=== PATIENT | male | born 1965 | race Caucasian/White ===

== ENCOUNTER → 2016-10-28 | Outpatient (CLI) | payer OTHER ==
[~2016-10-28] MED LIST: ASPI325T45 PO; ATORVASTATIN PO; CYCL10TA6 PO; GLYB-108 PO; HYDR1TAB2 PO; LISI-461 PO; METF1TAB53 PO; TADA10TA PO
[2016-10-28 10:33] LABS: ALT/SGPT 35 U/L (12-78); AST/SGOT 16 U/L (15-37); BLOOD UREA NITROGEN 13 mg/dl (7-18); BUN/CREATININE RATIO 14.7 (10-20); CARBON DIOXIDE 29 mmol/L (21-32); CHLORIDE 104 mmol/L (98-107); GLUCOSE 139 mg/dl (70-99); POTASSIUM 4.8 mmol/L (3.5-5.1); SODIUM 136 mmol/L (136-145)
[2016-10-28 10:55] LABS: ESTIMATED AVERAGE GLUCOSE 206 mg/dl; HA1C FLAG Normal (Normal)
== END | disposition home or self-care (01) ==
LOC: C.LAB 09:21
DX: E11.9 Type 2 diabetes mellitus without complications (principal); E78.5 Hyperlipidemia, unspecified

== ENCOUNTER → 2017-04-02 | Outpatient (CLI) | payer OTHER ==
[~2017-04-02] MED LIST changes: +ASPECOTC PO; -ASPI325T45 PO
[2017-04-02 13:08] LABS: BASO % 0.2 %; BASO ABS # 0.02 K/uL (0-0.2); EOS % 1.2 %; EOS ABS # 0.11 K/uL (0-0.5); HEMATOCRIT 51.3 % (42-52); HEMOGLOBIN 17.5 g/dL (14.0-18.0); IG# 0.03 K/uL (0.00-0.02); LYMPH % 21.4 %; LYMPH ABS # 1.96 K/uL (1.2-3.4); MEAN CELL VOLUME 94.8 fL (80-100); MEAN CORPUSCULAR HEMOGLOBIN 32.3 pg (25-34); MEAN CORPUSCULAR HGB CONC 34.1 g/dl (32-36); MEAN PLATELET VOLUME 11.3 fL (7.4-10.4); MONO % 10.4 %; MONO ABS # 0.95 K/uL (0.11-0.59); NEUT % 66.5 %; NEUT ABS # 6.08 K/uL (1.4-6.5); PLATELET COUNT 212 K/uL (130-400); RED CELL DISTRIBUTION WIDTH CV 12.3 % (11.5-14.5); RED CELL DISTRIBUTION WIDTH SD 42.4 fL (36.4-46.3); WHITE BLOOD COUNT 9.15 K/uL (4.8-10.8)
[2017-04-02 13:37] LABS: BLOOD UREA NITROGEN 14 mg/dl (7-18); CALCIUM 8.8 mg/dl (8.5-10.1); CARBON DIOXIDE 29 mmol/L (21-32); CREATININE 1.13 mg/dl (0.60-1.40); GLUCOSE 257 mg/dl (70-99); POTASSIUM 4.5 mmol/L (3.5-5.1); SODIUM 133 mmol/L (136-145)
[2017-04-03 07:36] LABS: HEMOGLOBIN A1C 7.5 % (4.5-5.6)
== END | disposition home or self-care (01) ==
LOC: C.LAB 12:03
DX: E11.9 Type 2 diabetes mellitus without complications (principal); I10 Essential (primary) hypertension

== ENCOUNTER → 2017-04-09 | Outpatient (CLI) | payer OTHER ==
--- NOTE | 2017-04-09 14:21 | DIAGNOSTIC IMAGING REPORT ---
CHEST 2 VIEWS ROUTINE CLINICAL HISTORY: Left-sided chest pain. Shortness of breath. COMPARISON STUDY: February 2009 FINDINGS: The cardiac and mediastinal contours are normal. There is no evidence of focal pulmonary consolidation. There is no evidence of failure. No pleural effusions are visualized.[ IMPRESSION: No active disease in the chest. Electronically signed by: Christophe Tsai M.D. 04/09/2017 2:20 PM Dictated Date/Time: 04/09/2017 2:19 PM
[2017-04-09 16:41] LABS: BLOOD UREA NITROGEN 20 mg/dl (7-18); CALCIUM 9.2 mg/dl (8.5-10.1); CARBON DIOXIDE 29 mmol/L (21-32); CREATININE 1.29 mg/dl (0.60-1.40); GLUCOSE 249 mg/dl (70-99); POTASSIUM 4.1 mmol/L (3.5-5.1); SODIUM 132 mmol/L (136-145)
[2017-04-09 16:46] LABS: CKMB 1.6 ng/ml (0.5-3.6)
== END | disposition home or self-care (01) ==
LOC: C.CPL 13:49
DX: R07.9 Chest pain, unspecified (principal); R06.00 Dyspnea, unspecified; R00.1 Bradycardia, unspecified

== ENCOUNTER → 2017-04-29 | Outpatient (CLI) | payer OTHER ==
[~2017-04-29] MED LIST changes: -ASPECOTC PO; +ASPI325T45 PO
[2017-04-29 12:34] LABS: AST/SGOT 14 U/L (15-37); BLOOD UREA NITROGEN 17 mg/dl (7-18); CALCIUM 9.6 mg/dl (8.5-10.1); CARBON DIOXIDE 29 mmol/L (21-32); CHOLESTEROL 134 mg/dl (0-200); CREATININE 1.07 mg/dl (0.60-1.40); GLUCOSE 241 mg/dl (70-99); POTASSIUM 4.5 mmol/L (3.5-5.1); SODIUM 131 mmol/L (136-145)
[2017-04-29 12:45] LABS: ALT/SGPT 38 U/L (12-78); LDL CHOLESTEROL CALCULATED 78 mg/dl
[2017-04-29 13:00] LABS: HEMOGLOBIN A1C 8.5 % (4.5-5.6)
== END | disposition home or self-care (01) ==
LOC: C.LAB 09:54
DX: I10 Essential (primary) hypertension (principal); E11.9 Type 2 diabetes mellitus without complications

== ENCOUNTER → 2017-05-04 | Outpatient (CLI) | payer OTHER ==
--- NOTE | 2017-05-04 15:45 | EXERCISE STRESS ECHO ---
*NOTICE TO RECEIVING [employer]ENCY This information is strictly Confidential and protected under [place] law. [place] law prohibits you from making any further disclosure of this information unless further disclosure is expressly permitted by the written consent of the person to whom it pertains or is authorized by law. A general authorization for the release of medical or other information is not sufficient for this purpose. Hospital accepts no responsibility if the information is made available to any other person, INCLUDING THE PATIENT. Interpretation Summary * Name: JOVAN NORMAN JR Study Date: 05/04/2017 10:00 AM BP: 132/87 mmHg * Patient Location: [facility] HR: 95 * : 1965 (M/d/yyyy) Gender: Male Height: 72 in * Age: 51 yrs Ethnicity: [place] Weight: 225 lb * Ordering Physician: Stanford Moore * Referring Physician: Stanford Moore D.O. * Performed By: Nova Villalpando RDCS * * Reason For Study: Chest pain, hypertension, family history of CAD * BSA: 2.2 m2 * -- Conclusions -- * 1. Negative exercise stress echo for ischemia at 97% MPHR. * 2. Negative stress ECG for ischemia. * 3. Above average functional capacity. Exercised 11:00 min, acheiving 13.4 METS. * 4. No exercise induced chest pain. Normal hemodynamic response to exercise. * 5. Normal resting LV size and function. EF 55-60%. Normal RV size and function. No significant valvular pathology. * 6. No prior studies for comparison. Procedure Details * ECHOEX, CPT #85004 * ECHO DOPPLER, CPT #34711 * ECHO COLOR FLOW, CPT #94730 Left Ventricle * The left ventricle is normal in size. * There is normal left ventricular wall thickness. * Ejection Fraction = 55-60%. * The left ventricular ejection fraction increases normally with stress. The left ventricular end-systolic cavity size reduces post-stress (normal response). The left ventricular wall motion with stress is normal. * Resting wall motion: Normal. Stress wall motion: Appropriate increase in Left ventricular systolic function and decrease in cavity size. No stress induced segmental wall motion abnormalities. Right Ventricle * The right ventricle is grossly normal size. * The right ventricular systolic function is normal as assessed by tricuspid annular plane systolic excursion (TAPSE) (normal >1.5 cm). Atria * The left atrial size is normal. * Right atrial size is normal. * No ASD detected; PFO is not assessed. Mitral Valve * The mitral valve is grossly normal. * There is no mitral valve stenosis. * There is trace mitral regurgitation. Tricuspid Valve * The tricuspid valve is not well visualized, but is grossly normal. * Significant tricuspid regurgitation is absent. Aortic Valve * The aortic valve opens well. * The aortic valve is trileaflet. * No hemodynamically significant valvular aortic stenosis. * There is no significant aortic regurgitation. Pulmonic Valve * The pulmonary valve is inadequately visualized, but the Doppler data is adequate for interpretation. * There is no pulmonic valvular regurgitation. Great Vessels * The aortic root and proximal ascending aorta are normal sized. Pericardium * There is no pericardial effusion. Stress Parameters * Normal baseline electrocardiogram. * Occasional PVCs and couplets during stress. * Stress ECG: No ST changes. No arrhythmias. * The stress portion of this study was personally supervised by the undersigned interpreting physician. * Rest heart rate was '95' BPM. * Rest blood pressure was '132/87' * Maximum heart rate achieved was 164 bpm. * Maximum heart rate was 97 % of maximum age-predicted heart rate. * Maximum blood pressure was '199/96' * Total exercise time was '11:01' * Maximum exercise MET level achieved was '13.40' METS * Maximum treadmill speed was '4.20' miles per hour. * Maximum treadmill elevation was '16.00'% grade. * Exercise was terminated due to 'achieving target heart rate' Left Ventricular Findings with Stress * The study was technically good with many images being of high quality. MMode 2D Measurements and Calculations IVSd 0.68 cm LVIDd 6.1 cm LVIDs 4.5 cm LVPWd 0.89 cm IVS/LVPW 0.76 FS 26.6 % EDV(Teich) 187.3 ml ESV(Teich) 91.6 ml EF(Teich) 51.1 % EDV(cubed) 227.6 ml ESV(cubed) 90.1 ml EF(cubed) 60.4 % LV mass(C)d 187.2 grams LV mass(C)dI 83.6 grams/m\S\2 SV(Teich) 95.7 ml SI(Teich) 42.7 ml/m\S\2 SV(cubed) 137.5 ml SI(cubed) 61.4 ml/m\S\2 Ao root diam 2.9 cm Ao root area 6.7 cm\S\2 ACS 1.8 cm LA dimension 3.6 cm asc Aorta Diam 3.4 cm LA/Ao 1.2 LVOT diam 2.0 cm LVOT area 3.3 cm\S\2 LVAd ap4 32.6 cm\S\2 LVLd ap4 8.8 cm EDV(MOD-sp4) 98.2 ml EDV(sp4-el) 102.2 ml LVAs ap4 18.7 cm\S\2 LVLs ap4 8.0 cm ESV(MOD-sp4) 37.7 ml ESV(sp4-el) 36.8 ml EF(MOD-sp4) 61.6 % EF(sp4-el) 64.0 % LVAd ap2 32.5 cm\S\2 LVLd ap2 9.0 cm EDV(MOD-sp2) 96.5 ml EDV(sp2-el) 100.4 ml LVAs ap2 19.4 cm\S\2 LVLs ap2 8.2 cm ESV(MOD-sp2) 40.3 ml ESV(sp2-el) 39.1 ml EF(MOD-sp2) 58.3 % EF(sp2-el) 61.1 % LVLd %diff 1.6 % EDV(MOD-bp) 97.4 ml LVLs %diff 1.9 % ESV(MOD-bp) 38.7 ml EF(MOD-bp) 60.3 % SV(MOD-sp4) 60.5 ml SI(MOD-sp4) 27.0 ml/m\S\2 SV(MOD-sp2) 56.2 ml SI(MOD-sp2) 25.1 ml/m\S\2 SV(MOD-bp) 58.7 ml SI(MOD-bp) 26.2 ml/m\S\2 SV(sp4-el) 65.4 ml SI(sp4-el) 29.2 ml/m\S\2 SV(sp2-el) 61.4 ml SI(sp2-el) 27.4 ml/m\S\2 Doppler Measurements and Calculations MV E max juanis 64.0 cm/sec MV A max juanis 89.7 cm/sec MV E/A 0.71 MV dec time 0.17 sec Ao V2 max 129.7 cm/sec Ao max PG 6.7 mmHg Ao max PG (full) 4.7 mmHg JOSE CARLOS(V,A) 1.8 cm\S\2 JOSE CARLOS(V,D) 1.8 cm\S\2 LV V1 max PG 2.0 mmHg LV V1 max 71.3 cm/sec PA V2 max 97.7 cm/sec PA max PG 3.8 mmHg PA acc slope 575.6 cm/sec\S\2 PA acc time 0.10 sec PA pr(Accel) 34.6 mmHg
== END | disposition home or self-care (01) ==
LOC: C.CPL 09:48
DX: R07.1 Chest pain on breathing (principal); R06.09 Other forms of dyspnea; I10 Essential (primary) hypertension; Z82.49 Family history of ischemic heart disease and other diseases of the circulatory system

== ENCOUNTER → 2017-05-13 | Outpatient (CLI) | payer OTHER ==
--- NOTE | 2017-05-13 10:47 | DIAGNOSTIC IMAGING REPORT ---
(RENAL)RETROPERITON COMP HISTORY: HYPERTENSION COMPARISON: None. FINDINGS: Right kidney: Maximum dimension 11.1 cm. No evidence for hydronephrosis. Normal corticomedullary differentiation and cortical thickness. Left kidney: Maximum dimension 13.5 cm. No evidence for hydronephrosis. Small 7 mm lower pole exophytic cyst. Normal corticomedullary differentiation and cortical thickness. Bladder: No bladder wall thickening. The bilateral ureteral jets were identified. IMPRESSION: Small left renal cyst. Otherwise negative study. No evidence for hydronephrosis. The above report was generated using voice recognition software. It may contain grammatical, syntax or spelling errors. Electronically signed by: Matry Hoover M.D. 05/13/2017 10:46 AM Dictated Date/Time: 05/13/2017 10:45 AM
--- NOTE | 2017-05-13 10:51 | DIAGNOSTIC IMAGING REPORT ---
DUPLEX RENAL ARTERY CLINICAL HISTORY: HYPERTENSION TECHNIQUE: Renal arterial Doppler COMPARISON STUDY: None FINDINGS: Mild increase in velocity proximal aspect left renal artery. All velocities otherwise are unremarkable bilaterally. Resistive indices are within normal limits. IMPRESSION: 30-40% narrowing proximal left renal artery. Otherwise negative study with no evidence for a high-grade stenosis. The above report was generated using voice recognition software. It may contain grammatical, syntax or spelling errors. Electronically signed by: Marty Hoover M.D. 05/13/2017 10:50 AM Dictated Date/Time: 05/13/2017 10:46 AM
== END | disposition home or self-care (01) ==
LOC: C.ULTR 08:21
DX: I10 Essential (primary) hypertension (principal); N28.1 Cyst of kidney, acquired

== ENCOUNTER 2023-08-31 18:50 | Inpatient (IN) ==
--- NOTE | 2023-08-31 21:51 | History & Physical Report ---
Date of Service August 31, 2023 Assessment & Plan (1) Septic bursitis of elbow: (2) Gram-positive bacteremia: (3) Insulin dependent type 2 diabetes mellitus: (4) Panic attacks: (5) Dyslipidemia: (6) HTN (hypertension): (7) Elevated troponin: Debora Govea is a 58M with PMH of panic attacks, T2DM on insulin, polyneuropathy, HLD, and HTN who presents as transfer from [facility] for S. Aureus bacteremia and sepsis associated with an infected bursitis. Septic Olecranon Bursitis - Patient w/ acute onset (08/23)of erythema, warmth, and swelling at the site of the left olecranon bursa - Leukocytosis to 15 at OSH - Bursal samples obtained at OSH 08/28 indicating S. Aureus - Patient was on PO Bactrim starting 08/28, but was switched to Vancomycin at OSH 08/30 prior to transfer - Continue Vancomycin at 2000 mg IV Q12h inpatient (creatinine stable at 1.2 at OSH) - XR L Elbow obtained to evaluate for cx such as fx, foreign body, osteomyelitis, adjacent joint effusion, foci of air or synovial thickening - Orthopedics consulted, appreciate recommendations - Bursal drainage recommended if fluid collection persists despite 36-48 hours of IV Abx, continue to follow - AM CBC/CMP ordered S. Aureus Bacteremia - L olecranon septic bursitis suspected source - Blood cultures obtained at OSH 08/28 indicating S. Aureus bacteremia - Hemodynamically stable - Lactate negative at OSH (1.5) - Repeat blood cultures for surveillance - Ordered TTE to evaluate for endocarditis - Continue source control w/ Vancomycin at 2000 mg IV Q12h inpatient, bursitis management as above Troponin Elevation - Troponin 86 on arrival 1700, downtrending to 76 at 1900 - No chest pain or dyspnea, monitor for sx - Likely demand in setting of infection Chronic Conditions: - HTN: continue Amlodipine - HLD: continue statin - Panic Attacks: continue Ativan PRN - DM2: Continue basal insulin, home PO medications held, SSI ordered, 08/15 A1c 8.2 FEN: DM2, Heart Healthy IVF: LR @ 125 Code status: Full Code DVT ppx: Ambulation/SCD Isolation: None Dispo:Med/Surg Admission and Anticipated Discharge Date Admission Date: August 31, 2023 History of Present Illness Chief Complaint: Septic Olecranon Bursitis w/ Gram Positive Bacteremia Primary Care Provider: Mery Maxwell MD Jeferson is a 58M with PMH of panic attacks, T2DM on insulin, polyneuropathy, HLD, and HTN who presents as transfer from [facility] for S. Aureus bacteremia and sepsis associated with an infected bursitis. Patient notes that alittle over a week ago, he was welding at work and some slag hit his left elbow resulting in a burn to the area. He notes that he cleaned it well and put aloe on the area, but that shortly thereafter it started to swell. He presented for evaluation on Wednesday and the area of edema over the left elbow joint was aspirated and a sample was sent for culture. In addition, blood cultures were obtained. Patient was discharged on PO Bactrim DS BID and Prednisone 40 mg PO daily. He notes that he was in [place] this morning and was called and notified that his wound and blood cultures were growing S. Aureus. He subsequently presented to [facility] and was transferred to [facility] for ongoing care. Patient notes that the swelling on his elbow had diminished following aspiration, but over the last few days it has only returned and increased in size. He denies pain at the site and has no limitations to ROM of the left arm/elbow. He denies fevers or chills, but does note that he has been increasingly fatigued and weak, which has progressed over the week, to the point where climbing a few steps has become challenging. Denies headache or lightheadedness. No chest pain or dyspnea. No bowel/bladder changes. He continues to eat and drink without limitation. Patient was transferred from [facility] ED where he was started on Vancomycin and received first dose via IV at 1645 for Septic Bursitis. Transfer was initiated to [facility] as [facility] did not have access to Orthopaedics consultation this week. Patient's PCP is Dr. Maxwell from [facility]. OSH records reviewed at length. Allergies Allergy/AdvReac Type Severity Reaction Status Date / Time No Known Allergies Allergy Unknown Verified 09/01/23 17:58 Home Medications Medication Instructions Recorded Confirmed Type coenzyme Q10 100 mg capsule 100 mg PO DAILY 05/12/18 09/01/23 History (CoQ-10) multivitamin 1 tab PO DAILY 02/07/19 05/29/24 History metformin 500 mg tablet,extended 1,000 mg (2 x 500 mg) PO QPM 30 05/26/22 09/01/23 Rx release 24hr (osmotic) days #60 tabs meteen meter 06/22/22 08/23/23 History insulin syringe-needle U-100 1 mL #20 ea 10/29/22 08/23/23 Rx 29 gauge x 1/2" (BD Insulin Syringe) testosterone cypionate 200 mg/mL 200 mg IM Q14D #2 mL 10/29/22 09/01/23 Rx intramuscular oil (Depo-Testosterone) insulin syringe-needle U-100 1 mL #2 ea 10/30/22 08/23/23 Rx 29 gauge x 1/2" (Advocate Syringes) magnesium 200 mg tablet 400 mg PO DAILY 12/04/22 09/01/23 History atorvastatin 80 mg tablet 80 mg PO DAILY #30 tabs 01/25/23 09/01/23 Rx cholecalciferol (vitamin D3) 1,250 50,000 unit PO Q7D #12 caps 01/25/23 09/01/23 Rx mcg (50,000 unit) capsule Dexcom G7 Customer Service Cashier (blood-glucose #1 ea 02/19/23 08/23/23 Rx meter,continuous) Dexcom G7 Sensor (blood-glucose #3 ea 02/22/23 08/23/23 Rx sensor) syringe (disposable) 1 mL (Easy #100 ea 03/18/23 08/23/23 Rx Paulina Luer Slip TB Syringe) semaglutide 2 mg/dose (8 mg/3 mL) 2 mg (0.75 mL) subcut WK 30 days 04/08/23 09/01/23 Rx subcutaneous pen injector #3 mL amlodipine 5 mg tablet 5 mg PO DAILY #30 tabs 05/14/23 09/01/23 Rx metoprolol succinate 25 mg 50 mg (2 x 25 mg) PO DAILY 90 days 06/11/23 09/01/23 Rx tablet,extended release 24 hr #180 tabs tamsulosin 0.4 mg capsule 0.4 mg PO DAILY #90 caps 06/18/23 09/01/23 Rx cyclobenzaprine 10 mg tablet 10 mg PO DAILY PRN muscle spasm 07/09/23 09/01/23 Rx #30 tabs tramadol 50 mg tablet 50 mg PO DAILY PRN pain #30 tabs 05/04/24 05/29/24 Rx lorazepam 0.5 mg tablet 0.5 mg PO DAILY PRN anxiety #30 08/22/23 09/01/23 Rx tabs insulin lispro 100 unit/mL See Rx Instructions subcut 08/27/23 09/01/23 Rx subcutaneous pen (Humalog KwikPen .COMPLEX #15 mL (U-100) Insulin) albuterol sulfate 90 mcg/actuation 2 puff inhalation Q4H PRN Wheezing 09/01/23 09/01/23 History aerosol inhaler (Ventolin HFA) insulin glargine U-300 conc 300 80 unit subcut QAM 09/01/23 09/01/23 History unit/mL (3 mL) subcutaneous pen (Toujeo Max U-300 SoloStar) sulfamethoxazole 800 1 tab PO BID 09/01/23 09/01/23 History mg-trimethoprim 160 mg tablet tadalafil 5 mg tablet 5 mg PO DAILY PRN Unknown 09/01/23 09/01/23 History cyanocobalamin (vitamin B-12) 1,000 mcg IM Q30D #1 mL 09/02/23 Rx 1,000 mcg/mL injection solution Past Med/Surg History Problem List (Updated 09/02/23 @ 09:55 by Tunde Abarca MD) Diabetes mellitus Ventricular ectopy Nonischemic cardiomyopathy Elevated troponin Gram-positive bacteremia Septic bursitis of elbow Panic attacks Insulin dependent type 2 diabetes mellitus Fatigue Idiopathic polyneuropathy Vitamin B12 deficiency Vitamin D deficiency Cervical spine disease Low testosterone Dyslipidemia HTN (hypertension) Medical History Cervical vertebral fusion Polycythemia Hypertension Diabetes mellitus Surgical History Hx of cervical spine surgery Plates C3, C4, C5 2003 History of open reduction and internal fixation (ORIF) procedure Left Forearm Family History Aunt Breast cancer Father Pulmonary embolism Uncle Diabetes Denies family history of Ovarian cancer Prostate cancer Myocardial infarction Colorectal cancer Social History Smoking Status: Never smoker Second Hand Exposure: No; Do You Dip or Chew Tobacco: No; Hx Alcohol Use: No Hx Substance Use: No Preferred Language: Luxembourger Communication Ability: Effective Visual Impairment: No Limitations Hearing Ability: Normal Beverage Steward Required: No Beliefs That Will Affect Care: None marital status: Current Living Situation: Alone current occupational status: employed current occupation: metal fabrication How many Children do You have: 2 Other Information That Helps Us Care for You: No Feels Safe at Home: Yes Safety Concerns: Feels Safe At This Time Childhood Exposure to Second-Hand Smoke: Yes Diet: regular caffeine: Yes during the past year weight has: remained stable Dental Care, Regularly: No Physical Activity Frequency: 1-2 Times per Week Seatbelt Use: sometimes Sunscreen Use: Yes Assistive Devices: None Physical Exam Physical Exam: Gen: NAD, alert, interactive HEENT: Supple, no LAD, no thyromegaly, no JVD Resp:Non-labored, no wheezing/rhonchi/rales, CTAB CV:RRR, normal S1/S2, no M/R/G Abd: Soft, non-distended, no TTP, normoactive bowels, no masses Extr: 2+ distal pulses in UE and LE, no LE edema, L olecranon bursa with significant erythema and edema, fluctuant fluid collection superficial to joint, mild overlying warmth, no expressible purulence or fluid. No ascending or descending erythema. Skin: No rashes lesions or erythema Supervising Physician Co-Signing Physician Notes Attending addendum: I have physically seen this patient, have supervised the medical residents activities, and agree with the H&P unless as otherwise noted. Assessment and Plan: Septic bursitis of left elbow Gram-positive bacteremia- Excepted in transfer from [facility] emergency department Fluid from [facility] on 08/28 growing Staph aureus sensitivities pending Patient had been on Bactrim p.o., and was changed to vancomycin IV Continue vancomycin IV per pharmacokinetic monitoring Orthopedic surgery consulted Follow serial CBC with differential and chemistry profile Elevated troponin/hypertension- The patient will be admitted to telemetry for serial cardiac enzymes, serial EKG's, cardiac rhythm monitoring and a 2-D echocardiogram with Dopplers. Initial troponin 86, downtrending to 76, likely supply/demand mismatch Continue amlodipine with hold parameters Diabetes mellitus- Continue glargine as noted Placed on SSI Remaining orders and notations as noted Resident Activity Tracking Resident Involvement: Resident Care Provided Care Provided: Adult Hospital Medicine (Night) (6) HTN (hypertension) Hypertension type: primary hypertension Qualified Code(s): I10 - Essential (primary) hypertension
[2023-08-31] MEDS ORDERED: DEXTROSE 50% 50 ML SYRINGE IV PRN (22:30)
[2023-08-31] MEDS ORDERED: GLUCOSE 40% GEL 15 GM TUBE PO PRN (22:30)
[2023-08-31] MEDS ORDERED: ONDANSETRON INJ 2 MG/ML 2 ML VIAL IV PRN (22:30)
[2023-08-31] MEDS ORDERED: GLUCAGON FOR INJ 1 MG VIAL SQ PRN (22:30)
[2023-08-31] MEDS ORDERED: POLYETHYLENE (MIRALAX) 17 GM PACK PO PRN (22:30)
[2023-08-31] MEDS ORDERED: GLUCOSE 10 TAB/TUBE PO PRN (22:30)
[2023-08-31] MEDS ORDERED: VANCOMYCIN CONSULT ACTIVE PRN (22:35)
[2023-08-31] MEDS ORDERED: LORazepam 0.5 MG TAB PO PRN (22:39)
[2023-08-31] MEDS: LACTATED RINGER'S 1,000 ML IV SCH (23:22)
[2023-09-01] MEDS ORDERED: VANCOMYCIN HCL 1,500 MG in SODIUM CHLORIDE 0.9% 500 ML IV SCH
[2023-09-01] MEDS: VANCOMYCIN HCL 1,250 MG in SODIUM CHLORIDE 0.9% 250 ML IV SCH (00:04)
[2023-09-01] MEDS: guaiFENesin 600 MG TABCR PO SCH (00:11)
[2023-09-01 00:21] LABS: Hematocrit (blood only) 46.4 % (42.0-52.0); Hemoglobin 15.1 g/dl (14.0-18.0); Mean Corpuscular Hemoglobin 27.7 pg (25.0-34.0); Mean Corpuscular Hgb Conc 32.5 g/dL (32.0-36.0); Mean Corpuscular Volume 85.1 fL (80.0-100.0); Mean Platelet Volume 11.2 fL (9.4-12.4); Platelet Count 255 K/uL (130-400); RDW Coefficient of Variation 16.1 % (11.5-14.5); RDW Standard Deviation 49.4 fL (36.4-46.3); Red Blood Count 5.45 M/uL (4.70-6.10); White Blood Count 13.59 K/ul (4.8-10.8)
[2023-09-01 00:37] LABS: Basophils # (auto) 0.03 K/uL (0.00-0.20); Basophils % (auto) 0.2 %; Immature Granulocytes # (auto) 0.11 K/uL (0.01-0.20); Immature Granulocytes % (auto) 0.8 %; Lymphocytes # (auto) 0.54 K/uL (1.20-3.40); Monocytes # (auto) 0.57 K/uL (0.11-0.59); Monocytes % (auto) 4.2 %; Neutrophils # (auto) 12.34 K/uL (1.40-6.50); Neutrophils % (auto) 90.8 %; Rouleaux 1+
[2023-09-01 01:00] LABS: Alanine Aminotransferase 25 U/L (7-52); Albumin Globulin Ratio 1.3 (0.9-2); Albumin Level 3.4 gm/dl (3.4-5.0); Alkaline Phosphatase 81 U/L (34-104); Anion Gap 7 (3-11); Aspartate Aminotransferase 14 U/L (13-39); BUN Creatinine Ratio 31.9 (10-20); Bilirubin,Total 0.7 mg/dl (0.2-1.0); Blood Urea Nitrogen 36 mg/dl (6-23); C Reactive Protein < 0.50 mg/dl (0-0.5); Calcium 8.7 mg/dl (8.6-10.3); Carbon Dioxide 23 mmol/L (21-32); Chloride 104 mmol/L (98-107); Creatinine Clr Calc Pharmacy 88.5 ml/min; Est GFR (Non-African American) 70.8 ml/min; Globulin 2.7 gm/dl (2.5-4.0); Glucose 320 mg/dl (70-99(Fasting)); Magnesium 1.8 mg/dl (1.7-2.4); Sodium 134 mmol/L (136-145); Total Protein 6.1 gm/dl (6.0-8.3); Troponin I High Sensitivity 56.4 pg/ml (0-20)
[2023-09-01] MEDS: INSULIN ASPART PER UNIT CHARGE SC ONE (01:13)
[2023-09-01] MEDS ORDERED: Nursing to Pharmacy Communication SCH (01:45)
[2023-09-01 07:44] LABS: Basophils # (auto) 0.05 K/uL (0.00-0.20); Basophils % (auto) 0.3 %; Eosinophils # (auto) 0.02 K/uL (0.00-0.50); Eosinophils % (auto) 0.1 %; Hematocrit (blood only) 50.6 % (42.0-52.0); Hemoglobin 16.2 g/dl (14.0-18.0); Immature Granulocytes # (auto) 0.23 K/uL (0.01-0.20); Immature Granulocytes % (auto) 1.3 %; Lymphocytes % (auto) 13.4 %; Mean Corpuscular Hemoglobin 27.5 pg (25.0-34.0); Mean Corpuscular Volume 85.8 fL (80.0-100.0); Mean Platelet Volume 10.8 fL (9.4-12.4); Monocytes # (auto) 1.31 K/uL (0.11-0.59); Monocytes % (auto) 7.6 %; Neutrophils # (auto) 13.24 K/uL (1.40-6.50); Neutrophils % (auto) 77.3 %; Platelet Count 280 K/uL (130-400); RDW Coefficient of Variation 16.2 % (11.5-14.5); RDW Standard Deviation 50.1 fL (36.4-46.3); White Blood Count 17.15 K/ul (4.8-10.8)
[2023-09-01 08:19] LABS: Anion Gap 5 (3-11); BUN Creatinine Ratio 28.9 (10-20); Blood Urea Nitrogen 28 mg/dl (6-23); C Reactive Protein < 0.50 mg/dl (0-0.5); Calcium 8.7 mg/dl (8.6-10.3); Carbon Dioxide 29 mmol/L (21-32); Chloride 106 mmol/L (98-107); Creatinine Clr Calc Pharmacy 103.1 ml/min; Est GFR (African American) 98.6 ml/min; Est GFR (Non-African American) 85.1 ml/min; Glucose 52 mg/dl (70-99(Fasting)); Magnesium 1.8 mg/dl (1.7-2.4); Potassium 3.9 mmol/L (3.5-5.1); Sodium 140 mmol/L (136-145)
--- NOTE | 2023-09-01 08:37 | Medical Student Progress Note ---
Date of Service September 01, 2023 Assessment & Plan (1) Septic bursitis of elbow: Laterality: left Qualified Code(s): M71.122 - Other infective bursitis, left elbow (2) Gram-positive bacteremia: (3) Insulin dependent type 2 diabetes mellitus: (4) Panic attacks: (5) Dyslipidemia: (6) HTN (hypertension): Hypertension type: primary hypertension Qualified Code(s): I10 - Essential (primary) hypertension (7) Elevated troponin: Plan #Septic Olecranon Bursitis - Patient w/ acute onset (08/23)of erythema, warmth, and swelling at the site of the left olecranon bursa - Leukocytosis to 15 at OSH, 17.15 this morning - Bursal samples obtained at OSH 08/28 indicating S. Aureus - Patient was on PO Bactrim starting 08/28, but was switched to Vancomycin at OSH 08/30 prior to transfer - Continue Vancomycin at 2000 mg IV Q12h inpatient (creatinine stable at 1.2 at OSH, pending this morning) - XR L Elbow obtained to evaluate for cx such as fx, foreign body, osteomyelitis, adjacent joint effusion, foci of air or synovial thickening - Orthopedics consulted and planning to do a bursal drainage - AM CBC/CMP ordered #S. Aureus Bacteremia - L olecranon septic bursitis suspected source - Blood cultures obtained at OSH 08/28 indicating S. Aureus bacteremia - Hemodynamically stable - Lactate negative at OSH (1.5) - Repeat blood cultures for surveillance - Ordered TTE to evaluate for endocarditis - Continue source control w/ Vancomycin at 2000 mg IV Q12h inpatient, bursitis management as above #Troponin Elevation - Troponin 86 on arrival 1700, downtrending to 76 at 1900 - No chest pain or dyspnea, monitor for sx - Likely demand in setting of infection #Hypertension -Continue amlodipine #Hyperlipidemia -Continue statin #Panic attacks -Continue ativan PRN #Type 2 Diabetes Mellitus -Continue basal insulin, home PO medications held, SSI ordered, A1C 8.2 on 08/15 FEN: DM2, Heart Healthy IVF: LR @ 125 Code status: Full Code DVT ppx: Ambulation/SCD Isolation: None Dispo:Med/Surg Admission and Anticipated Discharge Date Admission Date: August 31, 2023 Supervising Attestation Attending Physician Supervision Note: I independently interviewed and examined the patient and verified the denis history and physical, reviewed labs and image studies and agree with findings and care plan noted above. denies any new complains. waiting to have the bursa drained. comfortable in bed. left olecranon bursa swelling+ MSSA Bacteremia sec to infected olecranon bursitis - ortho consult - drained the bursa at the bedside today. For OR in am. -abx switch to cefazolin. Elevated troponin - checked echo. see below Acute cardiomyopathy - 25-30% EF with severe MR - consult cardiology. Maikel Govea is a 58 yo M with PMH of panic attacks, T2DM on insulin, polyneuropathy, HLD, and HTN who presents as transfer from [facility] for S. Aureus bacteremia and sepsis associated with an infected bursitis. 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 He notes that he cleaned it well and put aloe on the area, but that shortly thereafter it started to swell. He presented for evaluation on Wednesday and the area of edema over the left elbow joint was aspirated and a sample was sent for culture. In addition, blood cultures were obtained. Patient was discharged on PO Bactrim DS BID and Prednisone 40 mg PO daily. He notes that he was in [place] this morning and was called and notified that his wound and blood cultures were growing S. Aureus and subsequently presented to [facility]. Patient was started on Vancomycin and received first dose via IV at 1645 for Septic Bursitis. Transfer was initiated to [facility] [place] as [facility] did not have access to Orthopaedics consultation this week. Patient notes that the swelling on his elbow had diminished following aspiration, but over the last few days it has only returned and increased in size. He denies pain at the site and has no limitations to ROM of the left arm/elbow. He denies fevers or chills, but does note that he has been increasingly fatigued and weak, which has progressed over the week, to the point where climbing a few steps has become challenging. Denies headache or lightheadedness. Denies chest pain or dyspnea. Denies bowel/bladder changes. He continues to eat and drink without limitation. He denies any overnight events or changes. Review of Systems Review of Systems: Constitutional: No fever, No chills, No fatigue. Respiratory: No shortness of breath, No cough, No wheezing. Cardiovascular: No lightheadedness/presyncope, No chest pain, No palpitations. Gastrointestinal: No nausea, No vomiting, No diarrhea, No constipation, No heartburn, No abdominal pain. Musculoskeletal: No back pain, No neck pain, No joint pain, No muscle pain, No decreased range of motion, No trauma. Skin: No rash, No pruritus, No breakdown. Neurologic: No abnormal balance, No numbness, No tingling, No headache. Physical Exam Physical Exam: General: Alert and oriented, No acute distress HEENT: Normocephalic, no JVD, gross hearing intact, gross vision intact Cardiovascular: Normal rate, Regular rhythm, No murmur, No gallop Respiratory: Lungs are clear to auscultation, Respirations are non-labored, Breath sounds are equal Gastrointestinal: Soft, Non-tender, Non-distended, Normal bowel sounds Musculoskeletal: Normal range of motion, normal strength. 2+ distal pulses in UE and LE, no LE edema, L olecranon bursa with significant erythema and edema, fluctuant fluid collection superficial to joint, mild overlying warmth, no expressible purulence or fluid. No ascending or descending erythema. Neurologic: Normal sensory, Normal motor function, CN II-XII grossly intact Integumentary: Warm, Dry, [place] Psych: Mood-affect congruence. Reports no SI/HI. Speech is of normal pace and content Results & Data Vital Signs (Past 12 Hours) Vital Signs Temp Pulse Pulse Resp BP BP Pulse Ox 09/01/23 03:38 36.5 C 82 16 134/85 96 08/31/23 22:51 36.7 C 80 18 153/64 H 98 08/31/23 22:16 96 H 08/31/23 21:31 91 H 08/31/23 21:22 36.6 C 18 146/97 H 96 08/31/23 21:22 36.6 C 20 146/97 H 96 O2 Del Method 09/01/23 03:38 Room Air 08/31/23 22:51 Room Air 08/31/23 22:16 08/31/23 21:31 08/31/23 21:22 Room Air 08/31/23 21:22 Room Air
[2023-09-01] MEDS ORDERED: LANTUS PER UNIT CHARGE SQ SCH (09:00)
[2023-09-01] MEDS ORDERED: guaiFENesin 600 MG TABCR PO SCH (09:00)
[2023-09-01] MEDS ORDERED: PHARMACY GLYCEMIC MGMT CONSULT PRN (09:32)
[2023-09-01] MEDS: amLODIPine BESYLATE 5 MG TAB PO SCH (10:20)
[2023-09-01] MEDS: ATORVASTATIN 40 MG TAB PO SCH (10:20)
[2023-09-01] MEDS: INSULIN ASPART PER UNIT CHARGE SC SCH (10:24)
[2023-09-01] MEDS: LIDOCAINE 1% LOCAL 20 ML VIAL INFIL ONE (10:33)
--- NOTE | 2023-09-01 10:38 | XRay Report ---
XR elbow LT min 3V routine CLINICAL HISTORY: left elbow olecranon bursitis TECHNIQUE: 3 views of the left elbow were obtained. Comparison: Comparison is made to 4 radiograph 08/18/2012 FINDINGS: There is no evidence of an acute fracture. Partial visualization of orthopedic hardware in the radius and ulna. Joint spaces are well-preserved. There is no prominence of the anterior or posterior fat p ads to suggest an effusion. Soft tissue swelling is seen about the elbow with radiodense foreign bodi es. IMPRESSION: Soft tissue swelling about the elbow with radiodense foreign bodies noted. No evidence of acute fract ure. ACT 112: Negative or not required by law. Electronically signed by: Carlos Ramírez M.D. 09/01/2023 10:36 AM
--- NOTE | 2023-09-01 11:42 | Pharmacy Report ---
Pharmacy Glycemic Short Note 2 - Date of Service September 01, 2023 - Glycemic Short BSG Results (Last 24 hours): 08/31/23 08/31/23 08/31/23 23:24 23:26 23:53 Glucose 320 H* POC Glucose 315 H* 312 H* 09/01/23 09/01/23 09/01/23 04:39 07:15 08:10 Glucose 52 L* POC Glucose 120 H 85 OUTPATIENT ANTIDIABETIC REGIMEN: * Spoke with patient r/e insulin (prefers to be called Venancio) * Toujeo 80 units daily, between 10-11am. Reports adherence daily. * Humalog prn BSG and/or CHO - varies daily. Averages about 15 units/day. * Metformin * Semaglutide * Empagliflozin * HbA1c 8.2% on 08/16/23 ASSESSMENT: * 58 yo M with MSSA bacteremia and T2DM admitted 5 PM. Patient reports eating a sandwich, fruit, and yogurt prior to his HS BSG check last night and therefore was not surprised it was elevated. Small amount of Novolog correctional administered. BSG trended down significantly overnight to 52 mg/dL this AM * Patient reports AM fasting BSG's are usually on the lower side, sometimes in the 80's mg/dL but then trend up over the course of the day * Home regimen is significantly basal heavy (as compared to bolus) * Suspect etiology of low BSG this AM was not to due to small correctional dose of Novolog administered at HS, but rather Toujeo dose of 80 units which patient reported he took yesterday * Will attempt to more evenly balance basal/bolus insulin as an inpatient by reducing long-acting insulin and increasing prandial insulin. Toujeo is a longer-acting form of basal insulin, so this transition may need to occur over a day or two * No basal today - lunch BSG still trending down, significant overnight decrease last night, long-active high dose Toujeo on board and patient is scheduled to be NPO at midnight for I&D in OR tomorrow * Will keep very loose Novolog for now 2nd persistent Toujeo effects * If/when BSG's trend up and risk for hypoglycemia has dissipated, will need to consider resuming Lantus in-house and tightening Novolog parameters PLAN FOR INPATIENT GLYCEMIC CONTROL: * Hold outpatient diabetes medications * Basal insulin * Hold Lantus today. Toujeo administered yesterday afternoon w persistent pronounced effect * Bolus insulin * NovoLog per scale ACHS or Q6hrs while NPO * Goal Range: Low 120 mg/dL - High 160 mg/dL * Correction Factor: 40 mg/dL/unit * Nutritional / Prandial insulin per carb ratio of 1 unit per 14 grams CHO consumed
--- NOTE | 2023-09-01 12:18 | Orthopedic Consultation ---
Date of Consultation September 01, 2023 Assessment & Plan (1) Septic bursitis of elbow: Patient was seen evaluated today by myself as well as Dr. Santana. Dr. Santana had initially suggested bedside incision and drainage of the left olecranon bursa but due to the foreign body presence on the x-ray we elected to do a bedside aspiration to send fluid for culture, cell count, anaerobic and aerobic cultures, crystal analysis, and Gram stain. We will plan on doing an incision, debridement and drainage of the left elbow olecranon bursa with Dr. Santana in the operating room on September 02, 2023. He will be made n.p.o. after midnight. Recommended continued IV vancomycin as per primary service. Post aspiration pressure dressing was applied to the left elbow. Encouraged ice and elevation. He can do range of motion as tolerated. He can do activities as tolerated with the left elbow. Patient understands and agrees with the plan. All questions were answered today. Informed consent was obtained. Risk and benefits of the surgery were discussed and include but are not limited to infection, pain, bleeding, scarring, nerve or blood vessel damage, wound problems, weakness, stiffness, incomplete relief of symptoms, need for further surgery, recurrence, arthritis, blood clots, embolisms, heart attack, stroke and . Procedure: Left elbow olecranon bursa was identified. Timeout verbal consent was obtained for the injection. Risk and benefits of the injection were discussed. Patient agreed to proceed with aspiration left olecranon bursa. The injection site was marked, cleansed with alcohol and iodine swabs. Then aspirated 20 cc of thick white purulent fluid from the left elbow bursa. The aspiration was tolerated well. Pressure dressing was applied postop respiration. Fluid was sent for cell count, crystal analysis, anaerobic and aerobic cultures, Gram stain. History of Present Illness Reason for Consultation: left olecranon busitis- suspect septic Attending Physician: Kecia French MD History of Present Illness Patient is a 58-year-old male who presented to the emergency room with comp laints of left elbow swelling, pain and redness. It started on August 23 with redness and warmth and swelling at the left olecranon bursa. He states is worsened over the last few days. Denies any known injury. He had an aspiration in the emergency room and thick purulent material was expressed. Blood cultures were also obtained and he was found to have Staph aureus bacteremia. He is currently on vancomycin 2 mg IV every 12 hours. He has no dressing on the left elbow. He has been working on elevation and ice. Due to the purulent material in his left elbow with swelling orthopedic consultation was obtained. He states that it feels slightly better than yesterday but it continues to be swollen. He denies pain at touch. Denies any known injury. Allergies Allergy/AdvReac Type Severity Reaction Status Date / Time No Known Allergies Allergy Unknown Verified 08/23/23 11:05 Home Medications Medication Instructions Recorded Confirmed Type coenzyme Q10 100 mg capsule 100 mg PO DAILY 05/12/18 08/23/23 History (CoQ-10) multivitamin 1 tab PO DAILY 05/12/18 08/23/23 History metformin 500 mg tablet,extended 1,000 mg (2 x 500 mg) PO QPM 30 05/26/22 08/23/23 Rx release 24hr (osmotic) days #60 tabs meteen meter 06/22/22 08/23/23 History insulin syringe-needle U-100 1 mL #20 ea 10/29/22 08/23/23 Rx 29 gauge x 1/2" (BD Insulin Syringe) testosterone cypionate 200 mg/mL 200 mg IM Q14D #2 mL 10/29/22 08/23/23 Rx intramuscular oil (Depo-Testosterone) insulin syringe-needle U-100 1 mL #2 ea 10/30/22 08/23/23 Rx 29 gauge x 1/2" (Advocate Syringes) magnesium 200 mg tablet 400 mg PO DAILY 12/04/22 08/23/23 History atorvastatin 80 mg tablet 80 mg PO DAILY #30 tabs 01/25/23 08/23/23 Rx cholecalciferol (vitamin D3) 1,250 50,000 unit PO Q7D #12 caps 01/25/23 08/23/23 Rx mcg (50,000 unit) capsule lisinopril 40 mg tablet 40 mg PO DAILY #30 tabs 01/25/23 08/23/23 Rx insulin glargine U-300 conc 300 80 unit (0.2667 mL) subcut DAILY 01/27/23 08/23/23 Rx unit/mL (3 mL) subcutaneous pen #12 mL (Toujeo Max U-300 SoloStar) cyanocobalamin (vitamin B-12) 1,000 mcg IM Q30D #1 mL 02/11/23 08/23/23 Rx 1,000 mcg/mL injection solution Dexcom G7 [place] Warm Up (blood-glucose #1 ea 02/19/23 08/23/23 Rx meter,continuous) Dexcom G7 Sensor (blood-glucose #3 ea 02/22/23 08/23/23 Rx sensor) syringe (disposable) 1 mL (Easy #100 ea 03/18/23 08/23/23 Rx [place] Luer Slip TB Syringe) semaglutide 2 mg/dose (8 mg/3 mL) 2 mg (0.75 mL) subcut WK 30 days 04/08/23 08/23/23 Rx subcutaneous pen injector #3 mL amlodipine 5 mg tablet 5 mg PO DAILY #30 tabs 05/14/23 08/23/23 Rx metoprolol succinate 25 mg 50 mg (2 x 25 mg) PO DAILY 90 days 06/11/23 08/23/23 Rx tablet,extended release 24 hr #180 tabs tamsulosin 0.4 mg capsule 0.4 mg PO DAILY #90 caps 06/18/23 08/23/23 Rx cyclobenzaprine 10 mg tablet 10 mg PO DAILY PRN muscle spasm 07/09/23 08/23/23 Rx #30 tabs tadalafil 5 mg tablet 5 mg PO DAILY #30 tabs 07/12/23 08/23/23 Rx empagliflozin 25 mg tablet 25 mg PO DAILY #30 tabs 08/03/23 08/23/23 Rx (Jardiance) tramadol 50 mg tablet 50 mg PO DAILY PRN pain #30 tabs 08/07/23 08/23/23 Rx lorazepam 0.5 mg tablet 0.5 mg PO DAILY PRN anxiety #30 08/22/23 08/23/23 Rx tabs insulin lispro 100 unit/mL See Rx Instructions subcut 08/27/23 Rx subcutaneous pen (Humalog KwikPen .COMPLEX #15 mL (U-100) Insulin) Patient History Medical History Cervical vertebral fusion Diabetes mellitus Hypertension Polycythemia Vitamin B12 deficiency Vitamin D deficiency Surgical History Hx of cervical spine surgery History of open reduction and internal fixation (ORIF) procedure Family History Aunt Breast cancer Father Pulmonary embolism Uncle Diabetes Denies family history of Ovarian cancer Prostate cancer Myocardial infarction Colorectal cancer Social History Smoking Status: Never smoker Second Hand Exposure: No; Do You Dip or Chew Tobacco: No; Hx Alcohol Use: No Hx Substance Use: No Preferred Language: [place] Communication Ability: Effective Visual Impairment: No Limitations Hearing Ability: Normal Housing Counselor Required: No Beliefs That Will Affect Care: None marital status: Current Living Situation: Alone current occupational status: employed current occupation: [employer] How many Children do You have: 2 Other Information That Helps Us Care for You: No Feels Safe at Home: Yes Safety Concerns: Feels Safe At This Time Childhood Exposure to Second-Hand Smoke: Yes Diet: regular caffeine: Yes during the past year weight has: remained stable Dental Care, Regularly: No Physical Activity Frequency: 1-2 Times per Week Seatbelt Use: sometimes Sunscreen Use: Yes Assistive Devices: Hospital Bed Review of Systems Review of Systems: As per HPI. otherwise reviewed and noncontributory. Physical Exam Musculoskeletal: Exam of his left upper extremity: He has large swelling of the left olecranon bursa with fluctuance. Nontender with palpation. Mild erythema and warmth. Small open area with scabbing. The aspiration site is notable in the central aspect of the bursa. He has full elbow range of motion. Mild edema surrounding the olecranon bursal swelling. Full range of motion of the fingers. Distal pulses 1+. Full range of motion of the wrist and shoulder without discomfort. Results & Data Vital Signs (Past 12 Hours) Vital Signs Temp Pulse Resp BP Pulse Ox O2 Del Method 09/01/23 11:53 36.6 C 88 18 125/83 95 Room Air 09/01/23 08:06 36.7 C 74 18 144/88 H 97 Room Air 09/01/23 03:38 36.5 C 82 16 134/85 96 Room Air Laboratory Results 09/01/23 09/01/23 09/01/23 Range/Units 12:15 12:14 11:30 WBC (4.8-10.8) K/ul RBC (4.70-6.10) M/uL Hgb (14.0-18.0) g/dl Hct (42.0-52.0) % MCV (80.0-100.0) fL MCH (25.0-34.0) pg MCHC (32.0-36.0) g/dL RDW Std Deviation (36.4-46.3) fL RDW Coeff of Antonette (11.5-14.5) % Plt Count (130-400) K/uL MPV (9.4-12.4) fL Immature Gran % (Auto) % Neut % (Auto) % Lymph % (Auto) % [place] % (Auto) % Eos % (Auto) % Baso % (Auto) % Neut # (Auto) (1.40-6.50) K/uL Lymph # (Auto) (1.20-3.40) K/uL [place] # (Auto) (0.11-0.59) K/uL Eos # (Auto) (0.00-0.50) K/uL Baso # (Auto) (0.00-0.20) K/uL Immature Gran # (Auto) (0.01-0.20) K/uL Rouleaux Sodium (136-145) mmol/L Potassium (3.5-5.1) mmol/L Chloride (98-107) mmol/L Carbon Dioxide (21-32) mmol/L Anion Gap (3-11) BUN (6-23) mg/dl Creatinine (0.6-1.4) mg/dl Est Cr Clr Drug Dosing ml/min Est GFR ( Amer) ml/min Est GFR (Non-Af Amer) ml/min BUN/Creatinine Ratio (10-20) Glucose (70-99(Fasting)) mg/dl POC Glucose 68 L* 66 L* (70-99) mg/dl Calcium (8.6-10.3) mg/dl Magnesium (1.7-2.4) mg/dl Total Bilirubin (0.2-1.0) mg/dl AST (13-39) U/L ALT (7-52) U/L Alkaline Phosphatase (34-104) U/L Troponin I High Sens (0-20) pg/ml C-Reactive Protein (0-0.5) mg/dl Total Protein (6.0-8.3) gm/dl Albumin (3.4-5.0) gm/dl Globulin (2.5-4.0) gm/dl Albumin/Globulin Ratio (0.9-2) Fluid Comment Synovial Source Elbow Synovial Color Other Synovial Appearance Turbid Synovial WBC (Auto) 7743513 H (0-200) /ul Synovial RBC (Auto) 355481 /uL Synovial Polynuclear % 82.3 % Synovial Mononuclear % 17.7 % Synovial Crystals Pending 09/01/23 09/01/23 09/01/23 Range/Units 08:10 07:15 04:39 WBC 17.15 H (4.8-10.8) K/ul RBC 5.90 (4.70-6.10) M/uL Hgb 16.2 (14.0-18.0) g/dl Hct 50.6 (42.0-52.0) % MCV 85.8 (80.0-100.0) fL MCH 27.5 (25.0-34.0) pg MCHC 32.0 (32.0-36.0) g/dL RDW Std Deviation 50.1 H (36.4-46.3) fL RDW Coeff of Antonette 16.2 H (11.5-14.5) % Plt Count 280 (130-400) K/uL MPV 10.8 (9.4-12.4) fL Immature Gran % (Auto) 1.3 % Neut % (Auto) 77.3 % Lymph % (Auto) 13.4 % [place] % (Auto) 7.6 % Eos % (Auto) 0.1 % Baso % (Auto) 0.3 % Neut # (Auto) 13.24 H (1.40-6.50) K/uL Lymph # (Auto) 2.30 (1.20-3.40) K/uL [place] # (Auto) 1.31 H (0.11-0.59) K/uL Eos # (Auto) 0.02 (0.00-0.50) K/uL Baso # (Auto) 0.05 (0.00-0.20) K/uL Immature Gran # (Auto) 0.23 H (0.01-0.20) K/uL Rouleaux Sodium 140 (136-145) mmol/L Potassium 3.9 D (3.5-5.1) mmol/L Chloride 106 (98-107) mmol/L Carbon Dioxide 29 (21-32) mmol/L Anion Gap 5 (3-11) BUN 28 H (6-23) mg/dl Creatinine 0.97 (0.6-1.4) mg/dl Est Cr Clr Drug Dosing 103.1 ml/min Est GFR ( Amer) 98.6 ml/min Est GFR (Non-Af Amer) 85.1 ml/min BUN/Creatinine Ratio 28.9 H (10-20) Glucose 52 L* (70-99(Fasting)) mg/dl POC Glucose 85 120 H (70-99) mg/dl Calcium 8.7 (8.6-10.3) mg/dl Magnesium 1.8 (1.7-2.4) mg/dl Total Bilirubin (0.2-1.0) mg/dl AST (13-39) U/L ALT (7-52) U/L Alkaline Phosphatase (34-104) U/L Troponin I High Sens (0-20) pg/ml C-Reactive Protein < 0.50 (0-0.5) mg/dl Total Protein (6.0-8.3) gm/dl Albumin (3.4-5.0) gm/dl Globulin (2.5-4.0) gm/dl Albumin/Globulin Ratio (0.9-2) Fluid Comment Synovial Source Synovial Color Synovial Appearance Synovial WBC (Auto) (0-200) /ul Synovial RBC (Auto) /uL Synovial Polynuclear % % Synovial Mononuclear % % Synovial Crystals 08/31/23 08/31/23 08/31/23 Range/Units 23:53 23:26 23:24 WBC 13.59 H (4.8-10.8) K/ul RBC 5.45 (4.70-6.10) M/uL Hgb 15.1 (14.0-18.0) g/dl Hct 46.4 (42.0-52.0) % MCV 85.1 (80.0-100.0) fL MCH 27.7 (25.0-34.0) pg MCHC 32.5 (32.0-36.0) g/dL RDW Std Deviation 49.4 H (36.4-46.3) fL RDW Coeff of Antonette 16.1 H (11.5-14.5) % Plt Count 255 (130-400) K/uL MPV 11.2 (9.4-12.4) fL Immature Gran % (Auto) 0.8 % Neut % (Auto) 90.8 % Lymph % (Auto) 4.0 % [place] % (Auto) 4.2 % Eos % (Auto) 0.0 % Baso % (Auto) 0.2 % Neut # (Auto) 12.34 H (1.40-6.50) K/uL Lymph # (Auto) 0.54 L (1.20-3.40) K/uL [place] # (Auto) 0.57 (0.11-0.59) K/uL Eos # (Auto) 0.00 (0.00-0.50) K/uL Baso # (Auto) 0.03 (0.00-0.20) K/uL Immature Gran # (Auto) 0.11 (0.01-0.20) K/uL Rouleaux 1+ Sodium 134 L (136-145) mmol/L Potassium 5.0 (3.5-5.1) mmol/L Chloride 104 (98-107) mmol/L Carbon Dioxide 23 (21-32) mmol/L Anion Gap 7 (3-11) BUN 36 H (6-23) mg/dl Creatinine 1.13 (0.6-1.4) mg/dl Est Cr Clr Drug Dosing 88.5 ml/min Est GFR ( Amer) 82.0 ml/min Est GFR (Non-Af Amer) 70.8 ml/min BUN/Creatinine Ratio 31.9 H (10-20) Glucose 320 H* (70-99(Fasting)) mg/dl POC Glucose 312 H* 315 H* (70-99) mg/dl Calcium 8.7 (8.6-10.3) mg/dl Magnesium 1.8 (1.7-2.4) mg/dl Total Bilirubin 0.7 (0.2-1.0) mg/dl AST 14 (13-39) U/L ALT 25 (7-52) U/L Alkaline Phosphatase 81 (34-104) U/L Troponin I High Sens 56.4 H* (0-20) pg/ml C-Reactive Protein < 0.50 (0-0.5) mg/dl Total Protein 6.1 (6.0-8.3) gm/dl Albumin 3.4 (3.4-5.0) gm/dl Globulin 2.7 (2.5-4.0) gm/dl Albumin/Globulin Ratio 1.3 (0.9-2) Fluid Comment Synovial Source Synovial Color Synovial Appearance Synovial WBC (Auto) (0-200) /ul Synovial RBC (Auto) /uL Synovial Polynuclear % % Synovial Mononuclear % % Synovial Crystals Diagnostic Findings XR elbow LT min 3V routine CLINICAL HISTORY: left elbow olecranon bursitis TECHNIQUE: 3 views of the left elbow were obtained. Comparison: Comparison is made to 4 radiograph 08/18/2012 FINDINGS: There is no evidence of an acute fracture. Partial visualization of orthopedic hardware in the radius and ulna. Joint spaces are well-preserved. There is no prominence of the anterior or posterior fat pads to suggest an effusion. Soft tissue swelling is seen about the elbow with radiodense foreign bodies. IMPRESSION: Soft tissue swelling about the elbow with radiodense foreign bodies noted. No evidence of acute fracture. (1) Septic bursitis of elbow Laterality: left Qualified Code(s): M71.122 - Other infective bursitis, left elbow
[2023-09-01] MEDS: METOPROLOL SUCC 25MG EXT REL TAB PO SCH (12:22)
[2023-09-01 12:28] LABS: Appearance Synovial Fluid Turbid; Color Synovial Fluid Other; Mononuclear WBC Synovial 17.7 %; Polynuclear WBC Synovial 82.3 %; RBC Synovial Fluid Auto 239000 /uL; Source Synovial Fluid Elbow; WBC Synovial Fluid Auto 2294600 /ul (0-200)
[2023-09-01] MEDS: ceFAZolin 2000MG 2,000 MG/15 ML SYR IV SCH (13:06)
--- NOTE | 2023-09-01 16:37 | XCELERA ---
[id number]
[2023-09-01] MEDS: TAMSULOSIN HCL 0.4 MG CAP PO SCH (20:26)
[2023-09-02] MEDS: INSULIN ASPART PER UNIT CHARGE SC SCH ×2 (08:37→16:51)
--- NOTE | 2023-09-02 08:44 | Medical Student Progress Note ---
Date of Service September 02, 2023 Assessment & Plan (1) Septic bursitis of elbow: Laterality: left Qualified Code(s): M71.122 - Other infective bursitis, left elbow (2) Gram-positive bacteremia: (3) Insulin dependent type 2 diabetes mellitus: (4) Panic attacks: (5) Dyslipidemia: (6) HTN (hypertension): Hypertension type: primary hypertension Qualified Code(s): I10 - Essential (primary) hypertension (7) Elevated troponin: Debora Govea is a 58 yo M with PMH of panic attacks, T2DM on insulin, polyneuropathy, HLD, and HTN who presents as transfer from [facility] for S. Aureus bacteremia and sepsis associated with an infected bursitis. #Septic Olecranon Bursitis Aspirate + staph spp XR L Elbow obtained to evaluate for cx such as fx, foreign body, osteomyelitis, adjacent joint effusion, foci of air or synovial thickening To OR today for I&D, washout #S. Aureus Bacteremia Blood cultures obtained at OSH 08/28 indicating S. Aureus bacteremia- martinez sensitive Ancef 2g q8h Repeat blood cultures for surveillance TTE to evaluate for endocarditis: valves negative for vegetations #Nonischemic cardiomyopathy EF 25-30% Continue metoprolol 25mg Cardiology consulted, recommend AYANA s/p I&D, clear for surgery #Troponin Elevation Peak on arrival at 86 Denies chest pain, dyspnea Likely demand related #Hypertension amlodipine 5mg #Hyperlipidemia Atorvastatin 80mg #Panic attacks ativan PRN #Type 2 Diabetes Mellitus Pharmacy glycemic consult Basal bolus, SSI FEN: DM2, Heart Healthy IVF: LR @ 125 Code status: Full Code DVT ppx: Ambulation/SCD Isolation: None Dispo:Med/Surg Admission and Anticipated Discharge Date Admission Date: August 31, 2023 Supervising Attestation Attending Physician Supervision Note: I independently interviewed and examined the patient and verified the denis history and physical, reviewed labs and image studies and agree with findings and care plan noted above. seen this morning before going to OR. no fever, chest pain, shortness of breath. o/e - comfortable. RRR, no resp distress. left arm wrapped in MARTINA wrap after draining 08/31. MSSA Bacteremia sec to infected olecranon bursitis - ortho consult - drained the bursa at the bedside 08/31. For OR today. -continue IV cefazolin. Elevated troponin - checked echo. see below Cardiomyopathy - 25-30% EF with severe MR - Has h/o arrhythmia induced CMP in past. -continue metoprolol. -will need ischemic work up as outpatient. - for AYANA in am due to MSSA bacteremia and MR DM2- pharmacy consulted. HTN/HLD - continue statin/amlodipine. Early ambulation. Subjective Patient seen and evaluated at bedside this morning. No acute events overnight. Echo performed yesterday showed EF 25-30%. Denies CP, SOB Review of Systems Review of Systems: Constitutional: No fever, No chills, No fatigue. Respiratory: No shortness of breath, No cough, No wheezing. Cardiovascular: No lightheadedness/presyncope, No chest pain, No palpitations. Gastrointestinal: No nausea, No vomiting, No diarrhea, No constipation, No heartburn, No abdominal pain. Musculoskeletal: No back pain, No neck pain, No joint pain, No muscle pain, No decreased range of motion, No trauma. Skin: No rash, No pruritus, No breakdown. Neurologic: No abnormal balance, No numbness, No tingling, No headache. Physical Exam Physical Exam: .pea Results & Data Vital Signs (Past 12 Hours) Vital Signs Temp Pulse Pulse Resp BP Pulse Ox O2 Del Method 09/02/23 08:04 36.9 C 97 H 18 127/85 97 Room Air 09/02/23 03:57 36.6 C 85 16 114/73 94 Room Air 09/01/23 23:32 36.8 C 85 16 134/85 98 Room Air 09/01/23 23:30 90 Resident Activity Tracking Resident Involvement: Resident Care Provided Care Provided: Adult Hospital Medicine
--- NOTE | 2023-09-02 09:43 | Cardiology Consultation ---
Date of Consultation September 02, 2023 Assessment & Plan (1) Gram-positive bacteremia: (2) Septic bursitis of elbow: (3) Nonischemic cardiomyopathy: (4) Ventricular ectopy: (5) HTN (hypertension): (6) Diabetes mellitus: Plan 58-year-old man with previously mild nonischemic cardiomyopathy and multiple vascular risk factors who has gram-positive bacteremia (Staph aureus) and who is to undergo drainage of a septic olecranon bursa later today. At recent baseline, he has good exercise tolerance and no evidence of heart failure or symptoms suggestive of angina. Minimal troponin elevation on admission is likely demand ischemia, ECG benign and no chest pain. His systolic function has declined since 2020, but as noted he has a prior diagnosis of nonischemic cardiomyopathy, perhaps on the basis of his frequent ventricular ectopy. Telemetry here shows sinus rhythm with frequent ectopy but no symptomatic or sustained ventricular dysrhythmias. Continue current dose of metoprolol succinate 25 mg daily, can titrate upward if necessary to manage ventricular ectopy but would not do this preemptively given his low normal blood pressure. Etiology of his bacteremia would seem most likely secondary to his olecranon bursitis, which occurred at the site of an injury, therefore not suggestive of septic embolism. He did have a recent cough which could represent pulmonary septic emboli, but his chest x-ray was negative. Reasonable to perform transesophageal echocardiogram to exclude vegetation, but would not delay surgery for this. Moderate to severe mitral regurgitation noted as well, this may be due to left ventricular dilatation and seem less severe on auscultation. Could further evaluate this with transesophageal echocardiogram as well. Given his excellent functional status and absence of evidence for ongoing medical ischemia, congestive heart failure, or uncontrolled dysrhythmia, could proceed to orthopedic surgery without further intervention. The patient follows routinely with Dr. Engel, please inform him of the patient's hospitalization. I performed the consult this morning in order to facilitate proceeding to surgery without further delay. If desired, I would be glad to perform transesophageal echocardiogram tomorrow if his postoperative status permits. History of Present Illness Reason for Consultation: bacteremia with low EF - severe MR Requesting Physician: Kecia French MD Attending Physician: Kecia French MD History of Present Illness 58-year-old man followed from cardiology standpoint by Dr. Engel, history of nonischemic cardiomyopathy and complex ventricular ectopy, who was admitted 08/23/2023 with septic bursitis of his elbow and gram-positive bacteremia. He has multiple vascular risk factors including insulin-dependent diabetes, dyslipidemia, and hypertension, but had a negative prior workup in 2018 with a stress echocardiogram showing no ischemia at a heavy workload (11 minutes on a Axel protocol). He was noted to have a mild nonischemic cardiomyopathy (EF in the 50% range in 2019, 55% in 2020) and has a history of frequent and complex ventricular ectopy over the years. A Holter monitor from June 2023 showed si nus rhythm with frequent ventricular ectopy as follows: Frequent multiform premature ventricular complexes and ventricular couplets (3 dominant morphologies; 7.6% of all beats (20K beats) over 48 hours) Occasional ventricular bigeminy, ventricular trigeminy, and ventricular triplets There were 100 runs of multifocal NSVT up to 9 beats in duration and 160 BPM. The patient was due to see Ilnaa REYNA today, but is unable to do his hospitalization. His current echocardiogram shows EF of 30-35% with moderate global hypokinesis disproportional affecting the inferior and anteroseptal rivas, moderate LVH with grade 2 diastolic dysfunction, and moderate to severe mitral regurgitation with moderately dilated left atrium (his mitral regurgitation was mild in 2020). His troponin was mildly elevated 56.4. ECG on admission showed sinus tachycardia 101 bpm with left atrial enlargement, otherwise unremarkable. 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 He did develop a cough which is occasionally productive about a week ago and he noted swelling and discomfort of the left elbow at the site of a recent burn injury from welding slack. He is scheduled to go to the operating room today for operative drainage of a septic olecranon bursitis. At the time my evaluation this morning, he had no somatic complaints. Allergies Allergy/AdvReac Type Severity Reaction Status Date / Time No Known Allergies Allergy Unknown Verified 09/01/23 17:58 Home Medications Medication Instructions Recorded Confirmed Type coenzyme Q10 100 mg capsule 100 mg PO DAILY 05/12/18 09/01/23 History (CoQ-10) multivitamin 1 tab PO DAILY 05/12/18 09/01/23 History metformin 500 mg tablet,extended 1,000 mg (2 x 500 mg) PO QPM 30 05/26/22 09/01/23 Rx release 24hr (osmotic) days #60 tabs meteen meter 06/22/22 08/23/23 History insulin syringe-needle U-100 1 mL #20 ea 10/29/22 08/23/23 Rx 29 gauge x 1/2" (BD Insulin Syringe) testosterone cypionate 200 mg/mL 200 mg IM Q14D #2 mL 10/29/22 09/01/23 Rx intramuscular oil (Depo-Testosterone) insulin syringe-needle U-100 1 mL #2 ea 10/30/22 08/23/23 Rx 29 gauge x 1/2" (Advocate Syringes) magnesium 200 mg tablet 400 mg PO DAILY 12/04/22 09/01/23 History atorvastatin 80 mg tablet 80 mg PO DAILY #30 tabs 01/25/23 09/01/23 Rx cholecalciferol (vitamin D3) 1,250 50,000 unit PO Q7D #12 caps 01/25/23 09/01/23 Rx mcg (50,000 unit) capsule Dexcom G7 Power Electronics Engineer (blood-glucose #1 ea 02/19/23 08/23/23 Rx meter,continuous) Dexcom G7 Sensor (blood-glucose #3 ea 02/22/23 08/23/23 Rx sensor) syringe (disposable) 1 mL (Easy #100 ea 03/18/23 08/23/23 Rx Whiteface Luer Slip TB Syringe) semaglutide 2 mg/dose (8 mg/3 mL) 2 mg (0.75 mL) subcut WK 30 days 04/08/23 09/01/23 Rx subcutaneous pen injector #3 mL amlodipine 5 mg tablet 5 mg PO DAILY #30 tabs 05/14/23 09/01/23 Rx metoprolol succinate 25 mg 50 mg (2 x 25 mg) PO DAILY 90 days 06/11/23 09/01/23 Rx tablet,extended release 24 hr #180 tabs tamsulosin 0.4 mg capsule 0.4 mg PO DAILY #90 caps 06/18/23 09/01/23 Rx cyclobenzaprine 10 mg tablet 10 mg PO DAILY PRN muscle spasm 07/09/23 09/01/23 Rx #30 tabs tramadol 50 mg tablet 50 mg PO DAILY PRN pain #30 tabs 08/07/23 09/01/23 Rx lorazepam 0.5 mg tablet 0.5 mg PO DAILY PRN anxiety #30 08/22/23 09/01/23 Rx tabs insulin lispro 100 unit/mL See Rx Instructions subcut 08/27/23 09/01/23 Rx subcutaneous pen (Humalog KwikPen .COMPLEX #15 mL (U-100) Insulin) albuterol sulfate 90 mcg/actuation 2 puff inhalation Q4H PRN Wheezing 09/01/23 09/01/23 History aerosol inhaler (Ventolin HFA) insulin glargine U-300 conc 300 80 unit subcut QAM 09/01/23 09/01/23 History unit/mL (3 mL) subcutaneous pen (Toujeo Max U-300 SoloStar) sulfamethoxazole 800 1 tab PO BID 09/01/23 09/01/23 History mg-trimethoprim 160 mg tablet tadalafil 5 mg tablet 5 mg PO DAILY PRN Unknown 09/01/23 09/01/23 History cyanocobalamin (vitamin B-12) 1,000 mcg IM Q30D #1 mL 09/02/23 Rx 1,000 mcg/mL injection solution Patient History Medical History Cervical vertebral fusion Polycythemia Hypertension Diabetes mellitus Surgical History Hx of cervical spine surgery Plates C3, C4, C5 2003 History of open reduction and internal fixation (ORIF) procedure Left Forearm Family History Aunt Breast cancer Father Pulmonary embolism Uncle Diabetes Denies family history of Ovarian cancer Prostate cancer Myocardial infarction Colorectal cancer Social History Smoking Status: Never smoker Second Hand Exposure: No; Do You Dip or Chew Tobacco: No; Hx Alcohol Use: No Hx Substance Use: No Preferred Language: Macedonian Communication Ability: Effective Visual Impairment: No Limitations Hearing Ability: Normal Mattress Weaver Required: No Beliefs That Will Affect Care: None marital status: Current Living Situation: Alone current occupational status: employed current occupation: [employer] How many Children do You have: 2 Other Information That Helps Us Care for You: No Feels Safe at Home: Yes Safety Concerns: Feels Safe At This Time Childhood Exposure to Second-Hand Smoke: Yes Diet: regular caffeine: Yes during the past year weight has: remained stable Dental Care, Regularly: No Physical Activity Frequency: 1-2 Times per Week Seatbelt Use: sometimes Sunscreen Use: Yes Assistive Devices: None Physical Exam Physical Exam: Fit appearing middle-aged white male in no distress. BP normotensive. Pulse 97 bpm and regular. Respirations 18 and unlabored. Skin: no ecchymoses or generalized lesions. HEENT: unremarkable. Neck: JVP at the clavicle at 90 degrees, no carotid bruits. Lungs: clear. Cardiac: regular rhythm, normal S1-2, 2/6 apical holosystolic murmur which is nonradiating, no diastolic murmur. Abdomen: benign. Extremities: no edema, pulses intact. Left elbow bandaged (site of olecranon bursitis). Neurologic: normal affect and conversation, nonfocal. Results & Data Vital Signs (Past 12 Hours) Vital Signs Temp Pulse Pulse Resp BP Pulse Ox O2 Del Method 09/02/23 08:04 98.4 F 97 H 18 127/85 97 Room Air 09/02/23 03:57 97.9 F 85 16 114/73 94 Room Air 09/01/23 23:32 98.2 F 85 16 134/85 98 Room Air 09/01/23 23:30 90 Laboratory Results WBC 17.15, normal hemoglobin and platelet count. Normal electrolytes, urine 28, creatinine 0.97. Glucose labile (523 20 range). Troponin as per HPI. Diagnostic Findings ECG and echo findings as noted. Chest x-ray unremarkable. PG Care Time/CCT Total # of Minutes Spent Total Time Spent with Patient: Total time spent is greater than 50% in coordination of care (as documented) at patient's floor/unit and/or counseling patient: Coding Level of Care Code 71226 OFFICE CONSULT LVL Diagnoses Gram-positive bacteremia R78.81 Septic olecranon bursitis of left elbow M71.122 Laterality: left Nonischemic cardiomyopathy I42.8 Ventricular ectopy I49.3 Primary hypertension I10 Hypertension type: primary hypertension Diabetes mellitus E11.9 (2) Septic bursitis of elbow Laterality: left Qualified Code(s): M71.122 - Other infective bursitis, left elbow (5) HTN (hypertension) Hypertension type: primary hypertension Qualified Code(s): I10 - Essential (primary) hypertension
[2023-09-02] MEDS: LACTATED RINGER'S 1,000 ML IV SCH (11:09)
--- NOTE | 2023-09-02 11:14 | Anesthesiology Consultation ---
Date of Service September 02, 2023 Assessment & Plan Chart Review Chart Review: Acceptable Risk for Surgery Consults Requested none History Surgery Operation Date: 09/02/23 12:00 Proposed Procedures p Left Olecranon Bursa Incision and Debridement - Wayne Santana MD Height/Weight Height: 6 ft Weight: 105.9 kg Allergies Allergy/AdvReac Type Severity Reaction Status Date / Time No Known Allergies Allergy Unknown Verified 09/01/23 17:58 Medications Home Medications Medication Instructions Recorded Confirmed Last Taken coenzyme Q10 100 mg capsule 100 mg PO DAILY 05/12/18 09/01/23 08/30/23 (CoQ-10) multivitamin 1 tab PO DAILY 05/12/18 09/01/23 08/30/23 metformin 500 mg tablet,extended 1,000 mg (2 x 500 mg) PO QPM 30 05/26/22 09/01/23 08/30/23 release 24hr (osmotic) days #60 tabs meteen meter 06/22/22 08/23/23 Unknown insulin syringe-needle U-100 1 mL #20 ea 10/29/22 08/23/23 Unknown 29 gauge x 1/2" (BD Insulin Syringe) testosterone cypionate 200 mg/mL 200 mg IM Q14D #2 mL 10/29/22 09/01/23 08/25/23 intramuscular oil (Depo-Testosterone) insulin syringe-needle U-100 1 mL #2 ea 10/30/22 08/23/23 Unknown 29 gauge x 1/2" (Advocate Syringes) magnesium 200 mg tablet 400 mg PO DAILY 12/04/22 09/01/23 08/30/23 atorvastatin 80 mg tablet 80 mg PO DAILY #30 tabs 01/25/23 09/01/23 08/30/23 cholecalciferol (vitamin D3) 1,250 50,000 unit PO Q7D #12 caps 01/25/23 09/01/23 08/25/23 mcg (50,000 unit) capsule Dexcom G7 Investment Banking Manager (blood-glucose #1 ea 02/19/23 08/23/23 Unknown meter,continuous) Dexcom G7 Sensor (blood-glucose #3 ea 02/22/23 08/23/23 Unknown sensor) syringe (disposable) 1 mL (Easy #100 ea 03/18/23 08/23/23 Unknown [place] Luer Slip TB Syringe) semaglutide 2 mg/dose (8 mg/3 mL) 2 mg (0.75 mL) subcut WK 30 days 04/08/23 09/01/23 08/29/23 subcutaneous pen injector #3 mL amlodipine 5 mg tablet 5 mg PO DAILY #30 tabs 05/14/23 09/01/23 08/30/23 metoprolol succinate 25 mg 50 mg (2 x 25 mg) PO DAILY 90 days 06/11/23 09/01/23 08/30/23 tablet,extended release 24 hr #180 tabs tamsulosin 0.4 mg capsule 0.4 mg PO DAILY #90 caps 06/18/23 09/01/23 08/30/23 cyclobenzaprine 10 mg tablet 10 mg PO DAILY PRN muscle spasm 07/09/23 09/01/23 Unknown #30 tabs tramadol 50 mg tablet 50 mg PO DAILY PRN pain #30 tabs 08/07/23 09/01/23 Unknown lorazepam 0.5 mg tablet 0.5 mg PO DAILY PRN anxiety #30 08/22/23 09/01/23 Unknown tabs insulin lispro 100 unit/mL See Rx Instructions subcut 08/27/23 09/01/23 08/30/23 subcutaneous pen (Humalog KwikPen .COMPLEX #15 mL (U-100) Insulin) albuterol sulfate 90 mcg/actuation 2 puff inhalation Q4H PRN Wheezing 09/01/23 09/01/23 Unknown aerosol inhaler (Ventolin HFA) insulin glargine U-300 conc 300 80 unit subcut QAM 09/01/23 09/01/23 08/30/23 unit/mL (3 mL) subcutaneous pen (Toujeo Max U-300 SoloStar) sulfamethoxazole 800 1 tab PO BID 09/01/23 09/01/23 08/30/23 mg-trimethoprim 160 mg tablet tadalafil 5 mg tablet 5 mg PO DAILY PRN Unknown 09/01/23 09/01/23 Unknown cyanocobalamin (vitamin B-12) 1,000 mcg IM Q30D #1 mL 09/02/23 Unknown 1,000 mcg/mL injection solution Active Medications Generic Name Dose Route Start Last Admin Trade Name Freq PRN Reason Stop Dose Admin Amlodipine Besylate 5 mg 09/01/23 09:00 09/02/23 08:32 Amlodipine Besylate 5 Mg Tab PO 10/01/23 08:59 5 mg QAM INES Administration Atorvastatin Calcium 80 mg 09/01/23 09:00 09/02/23 08:32 Atorvastatin 40 Mg Tab PO 10/01/23 08:59 80 mg QAM INES Administration Guaifenesin 600 mg 09/01/23 00:05 09/02/23 08:32 Guaifenesin 600 Mg Tabcr PO 10/01/23 00:04 600 mg Q12 INSE Administration Lactated Ringer's 1,000 mls @ 125 mls/hr 08/31/23 22:45 09/02/23 08:32 Lr IV 09/30/23 22:44 125 mls/hr .Q8H INES Administration Cefazolin Sodium 2,000 mg in 15 mls @ 3.75 mls/min 09/01/23 12:00 09/02/23 04:54 Ancef 2000mg IV 09/15/23 11:59 3.75 mls/min Q8H INES Administration Protocol Lactated Ringer's 1,000 mls @ 15 mls/hr 09/02/23 10:45 09/02/23 11:09 Lr IV 10/02/23 10:44 15 mls/hr .Q24H INES Administration Insulin Aspart 0 units 09/02/23 08:00 09/02/23 08:37 Insulin Aspart Per Unit Charge SC 10/02/23 07:59 Not Given Q6 INES Metoprolol Succinate 25 mg 09/01/23 09:00 09/02/23 08:32 Metoprolol Succ 25mg Ext Rel Tab PO 10/01/23 08:59 25 mg QAM INES Administration Tamsulosin HCl 0.4 mg 09/01/23 21:00 09/01/23 20:26 Tamsulosin Hcl 0.4 Mg Cap PO 10/01/23 20:59 0.4 mg HS INES Administration NPO Date Last Intake of Fluids: 09/02/23 Time Last Intake of Fluids: 09:00 Date Last Intake of Solids: 09/01/23 Time Last Intake of Solids: 23:00 Past Medical History Medical History Cervical vertebral fusion Polycythemia Hypertension Diabetes mellitus Past Family History Family History Aunt Breast cancer Father Pulmonary embolism Uncle Diabetes Denies family history of Ovarian cancer Prostate cancer Myocardial infarction Colorectal cancer Past Surgical History Surgical History Hx of cervical spine surgery Plates C3, C4, C5 2003 History of open reduction and internal fixation (ORIF) procedure Left Forearm Social History Smoking Status: Never smoker Do You Dip or Chew Tobacco: No Hx Alcohol Use: No Alcohol type: wine Hx Substance Use: No Physical Exam Vital Signs Last Vital Signs Temp 36.8 C 09/02/23 11:01 Pulse 91 H 09/02/23 11:01 Resp 20 09/02/23 11:01 BP 108/71 09/02/23 11:01 Pulse Ox 97 09/02/23 11:01 O2 Del Method Room Air 09/02/23 11:01 Testing Laboratory Results 09/01/23 07:15 09/01/23 07:15 09/01/23 11:30 Gram Stain - Final Elbow,Left Aerobic and Anaerobic Culture - Preliminary Staphylococcus species 08/31/23 23:53 Aerobic Blood Culture - Preliminary Blood No growth in Aerobic bottle after 24 hours. Anaerobic Blood Culture - Preliminary No growth in Anaerobic bottle after 24 hours. 08/31/23 23:53 Aerobic Blood Culture - Preliminary Blood No growth in Aerobic bottle after 24 hours. Anaerobic Blood Culture - Preliminary No growth in Anaerobic bottle after 24 hours. 09/02/23 09/02/23 08:24 08:23 POC Glucose 82 63 L*
[2023-09-02] MEDS ORDERED: HYDROmorphone INJ 2 MG/ML SYR/VIAL IV PRN (11:15)
[2023-09-02] MEDS ORDERED: ONDANSETRON INJ 2 MG/ML 2 ML VIAL IV PRN (11:15)
[2023-09-02] MEDS ORDERED: ePHEDrine sulfate 50 MG/ML AMP IV PRN (11:15)
[2023-09-02] MEDS ORDERED: fentaNYL citrate PF 100 MCG/2 ML VIAL IV PRN (11:15)
[2023-09-02] MEDS ORDERED: PROMETHAZINE HCL 6.25 MG in SODIUM CHLORIDE 0.9% 50 ML IV PRN (11:15)
[2023-09-02] MEDS ORDERED: ATROPINE SULFATE 0.1 MG/ML 10ML SYR IV PRN (11:15)
[2023-09-02] MEDS ORDERED: PROPOFOL IV EMULSION 10 MG/ML 20 ML VIAL IV ONE (11:29)
[2023-09-02] MEDS ORDERED: LIDOCAINE 2% 2 ML VIAL/AMP(20MG/ML) INFIL ONE (11:29)
[2023-09-02] MEDS ORDERED: ONDANSETRON INJ 2 MG/ML 2 ML VIAL ONE (11:30)
[2023-09-02] MEDS ORDERED: fentaNYL citrate PF 100 MCG/2 ML VIAL ONE (11:31)
[2023-09-02] MEDS ORDERED: MIDAZOLAM HCL 1 MG/ML 2ML VIAL ONE (11:31)
--- NOTE | 2023-09-02 12:08 | Pharmacy Report ---
Pharmacy Glycemic Short Note 2 - Date of Service September 02, 2023 - Glycemic Short BSG Results (Last 24 hours): 09/01/23 09/01/23 09/01/23 12:14 12:15 12:40 POC Glucose 66 L* 68 L* 114 H 09/01/23 09/01/23 09/02/23 17:24 20:06 08:23 POC Glucose 71 124 H 63 L* 09/02/23 09/02/23 08:24 11:15 POC Glucose 82 115 H OUTPATIENT ANTIDIABETIC REGIMEN: * Spoke with patient r/e insulin (prefers to be called Venancio) * Toujeo 80 units daily, between 10-11am. Reports adherence daily. * Humalog prn BSG and/or CHO - varies daily. Averages about 15 units/day. * Metformin * Semaglutide * Empagliflozin * HbA1c 8.2% on 08/16/23 ASSESSMENT: 09/01 * Patient has received 0 units of insulin over last 24 hours, NPO since midnight. Blood sugars at goal or below. * Continue to hold basal and CR at this time. Plan undergo drainage of a septic olecranon bursa later today. 08/31 * 58 yo M with MSSA bacteremia and T2DM admitted 08/30 PM. Patient reports eating a sandwich, fruit, and yogurt prior to his HS BSG check last night and therefore was not surprised it was elevated. Small amount of Novolog correctional administered. BSG trended down significantly overnight to 52 mg/dL this AM * Patient reports AM fasting BSG's are usually on the lower side, sometimes in the 80's mg/dL but then trend up over the course of the day * Home regimen is significantly basal heavy (as compared to bolus) * Suspect etiology of low BSG this AM was not to due to small correctional dose of Novolog administered at HS, but rather Toujeo dose of 80 units which patient reported he took yesterday * Will attempt to more evenly balance basal/bolus insulin as an inpatient by reducing long-acting insulin and increasing prandial insulin. Toujeo is a longer-acting form of basal insulin, so this transition may need to occur over a day or two * No basal today - lunch BSG still trending down, significant overnight decrease last night, long-active high dose Toujeo on board and patient is scheduled to be NPO at midnight for I&D in OR tomorrow * Will keep very loose Novolog for now 2nd persistent Toujeo effects * If/when BSG's trend up and risk for hypoglycemia has dissipated, will need to consider resuming Lantus in-house and tightening Novolog parameters PLAN FOR INPATIENT GLYCEMIC CONTROL: * Hold outpatient diabetes medications * Basal insulin * Hold Lantus * Bolus insulin * NovoLog per scale ACHS or Q6hrs while NPO * Goal Range: Low 120 mg/dL - High 160 mg/dL * Correction Factor: 40 mg/dL/unit * Nutritional / Prandial insulin per carb ratio of 1 unit per -- grams CHO consumed
--- NOTE | 2023-09-02 12:11 | History & Physical Bridge Note ---
Date of Service September 02, 2023 History & Physical Bridge Note I have examined the patient, reviewed the History & Physical and in the interval since the performance of the History & Physical I have noted the following changes of clinical significance: no changes noted
[2023-09-02] MEDS ORDERED: SUGAMMADEX SODIUM 200 MG/2 ML VIAL IV ONE (13:25)
[2023-09-02] MEDS: LIDOCAINE 1% LOCAL 20 ML VIAL ONE (13:31)
[2023-09-02] MEDS: BUPIVACAINE 0.5 % 5 MG/1 ML MPF 30ML VIAL ONE (13:31)
--- NOTE | 2023-09-02 13:41 | Fluoroscopy Report ---
FL elbow LT 2V CLINICAL HISTORY: LEFT ELBOW TECHNIQUE: 2 views were obtained with the C-arm in the OR with the above procedure. Total fluoroscopy time was 2.9 seconds. Radiation dose was 0.14 mGy. Comparison: Comparison is made to left shoulder radiographs 09/01/2023 FINDINGS/IMPRESSION: Intraoperative images were obtained of incision and drainage of the left elbow. Please correlate with intraoperative fluoroscopy and operative report. ACT 112: Negative or not required by law. Electronically signed by: Carlos Ramírez M.D. 09/02/2023 1:39 PM
[2023-09-02] MEDS ORDERED: DexMEDEtomidine HCL IV 100 MCG/ML VIAL IV ONE (13:56)
--- NOTE | 2023-09-02 13:56 | Operative Report ---
Post Operative Report Pre & Post Diagnosis Operation Date: 09/02/23 12:00 Pre-Op Diagnosis: Infected Left Olecranon Bursa Post-Op Diagnosis: Infected Left Olecranon Bursa I identified the patient and participated in the time-out.: Yes Procedure Operation Date: 09/02/23 12:00 Actual Procedures p Left Olecranon Bursectomy with Incision and Debridement(Left) - Wayne Santana MD Surgeon Wayne Santana MD Spool Worker none Estimated Blood Loss 5 Findings Consistent with Post-Op Diagnosis Specimens Culture for aerobic and anaerobic Gram stain left olecranon bursa. Permanent path specimen left olecranon bursa tissue Drains Hemovac x 1 Anesthesia Type General Regional Complications none Disposition Accompanied Patient To Recovery: No Disposition: Recovery Room Indications Russel is 58. He has septic left olecranon bursitis with metallic debris in place. He has had the bursa aspirated several times. I recommended a bursa excision he agreed to proceed. Description of Procedure Informed consent. Patient identified. He identified the procedure site as the left elbow. I marked with my initials. A preoperative surgical timeout is performed. A preop dose of IV antibiotics was given. He was taken to the operating room positioned supine on the operating room table. Tourniquet applied to the left upper arm. The examination demonstrated redness and induration with soft tissue fullness as well as fluctuance over the olecranon bursa bursa. 3 to 4 cm in diameter. Otherwise unremarkable. Full movement of the elbow. Prepped and draped in the usual sterile fashion. DVT prophylaxis intraoperatively with foot pumps. Postoperatively mobility. Limb exsanguinated with the Esmarch except for no pressure over the bursa. Tourniquet inflated to 250 mmHg. A longitudinal incision was made centered over the olecranon bursa about 6 cm in length. Immediately upon entering the bursa purulent fluid was evacuated and a culture was obtained. I then circumferentially excised the bursa taking care to not buttonhole the skin. I once excised the bursa was sent for permanent specimen. Irrigation was then performed with pulsatile lavage and 3 L of sterile saline. The tourniquet was then let down and meticulous hemostasis was achieved with electrocautery and pressure. I then inserted a small Hemovac drain exiting distally and when the wound was dry closed with 3-0 nylon. Near far far near retention stitches as well as horizontal mattress stitches. The elbow was cleaned with wet and dry sponges. A soft sterile dressing was applied. Tourniquet time was approximately 20 minutes. Xeroform 4 x 4's ABD soft wrap and a full-length Teodoro with a sling. Patient awakened from anesthesia without difficulty and taken to the recovery room in stable condition. Specimens were as mentioned above. Counts were correct blood loss was 10 cc. At the conclusion of the operation I left a message for the patient's contact. No complications. Postoperative plan is wound monitoring. Follow drain output. Continue IV antibiotics. I attest to the content of the Intraoperative Record and any orders documented therein. Any exceptions are noted below.
--- NOTE | 2023-09-02 14:50 | Anesthesiology Progress Note ---
Date of Service September 02, 2023 Anesthesia Post Procedure Vital Signs Vital Signs: Temp Pulse Pulse Pulse Resp BP Pulse Ox 09/02/23 14:40 91 H 16 152/92 H 94 09/02/23 14:25 36.2 C L 93 H 16 146/94 H 94 09/02/23 14:15 93 H 16 135/75 94 09/02/23 14:05 98 H 16 151/92 H 98 09/02/23 13:56 36.2 C L 106 H 16 168/102 H 93 09/02/23 11:01 36.8 C 91 H 20 108/71 97 09/02/23 08:04 36.9 C 97 H 18 127/85 97 09/02/23 07:30 89 09/02/23 03:57 36.6 C 85 16 114/73 94 09/01/23 23:32 36.8 C 85 16 134/85 98 09/01/23 23:30 90 09/01/23 19:48 36.8 C 74 18 136/86 96 09/01/23 16:38 36.4 C L 89 18 134/78 95 09/01/23 15:30 95 H O2 Del Method O2 Flow Rate 09/02/23 14:40 Room Air 09/02/23 14:25 Room Air 09/02/23 14:15 Room Air 09/02/23 14:05 Oxymask 5 09/02/23 13:56 Oxymask 5 09/02/23 11:01 Room Air 09/02/23 08:04 Room Air 09/02/23 07:30 09/02/23 03:57 Room Air 09/01/23 23:32 Room Air 09/01/23 23:30 09/01/23 19:48 Room Air 09/01/23 16:38 Room Air 09/01/23 15:30 Transfer of Care Handoff Completed per policy Notes Mental Status: alert / awake / arousable Patient Amnestic to Procedure: Yes Nausea / Vomiting: adequately controlled Pain: adequately controlled Airway Patency, RR, SpO2: stable & adequate BP & HR: stable & adequate Hydration State: stable & adequate Anesthetic Complications: no major complications apparent
[2023-09-02] MEDS ORDERED: KETOROLAC 30 MG/ML VIAL IV PRN (15:07)
[2023-09-02] MEDS ORDERED: oxyCODONE HCL IR 5 MG TAB (IMMEDIATE RELEASE) PO PRN (15:07)
[2023-09-02] MEDS: ONDANSETRON INJ 2 MG/ML 2 ML VIAL IV PRN (15:26)
[2023-09-02] MEDS: ACETAMINOPHEN 325 MG TAB PO PRN (15:54)
[2023-09-02] MEDS ORDERED: Nursing to Pharmacy Communication SCH (16:15)
[2023-09-02] MEDS: CARBOHYDRATES FOR HYPOGLYCEMIA PO PRN (16:48)
--- NOTE | 2023-09-02 19:42 | Billing Data ---
Date of Service September 02, 2023 Coding Level of Care Code 50575 INT INP/OBS CARE
[2023-09-02] MEDS: MELATONIN 3 MG TAB PO PRN (21:20)
[2023-09-03 06:21] LABS: Basophils # (auto) 0.05 K/uL (0.00-0.20); Basophils % (auto) 0.5 %; Eosinophils # (auto) 0.19 K/uL (0.00-0.50); Eosinophils % (auto) 1.9 %; Hematocrit (blood only) 49.2 % (42.0-52.0); Hemoglobin 15.8 g/dl (14.0-18.0); Immature Granulocytes # (auto) 0.19 K/uL (0.01-0.20); Immature Granulocytes % (auto) 1.9 %; Lymphocytes # (auto) 1.06 K/uL (1.20-3.40); Lymphocytes % (auto) 10.4 %; Mean Corpuscular Hemoglobin 27.3 pg (25.0-34.0); Mean Corpuscular Hgb Conc 32.1 g/dL (32.0-36.0); Mean Corpuscular Volume 85.1 fL (80.0-100.0); Mean Platelet Volume 10.7 fL (9.4-12.4); Monocytes # (auto) 0.98 K/uL (0.11-0.59); Monocytes % (auto) 9.6 %; Neutrophils # (auto) 7.69 K/uL (1.40-6.50); Neutrophils % (auto) 75.7 %; Platelet Count 219 K/uL (130-400); RDW Coefficient of Variation 15.9 % (11.5-14.5); RDW Standard Deviation 48.5 fL (36.4-46.3); Red Blood Count 5.78 M/uL (4.70-6.10); White Blood Count 10.16 K/ul (4.8-10.8)
[2023-09-03 06:34] LABS: BUN Creatinine Ratio 18.9 (10-20); Calcium 8.4 mg/dl (8.6-10.3); Creatinine Clr Calc Pharmacy 94.4 ml/min; Est GFR (African American) 88.6 ml/min; Est GFR (Non-African American) 76.4 ml/min; Potassium 3.8 mmol/L (3.5-5.1)
--- NOTE | 2023-09-03 08:20 | Medical Student Progress Note ---
Date of Service September 03, 2023 Assessment & Plan (1) Septic bursitis of elbow: Laterality: left Qualified Code(s): M71.122 - Other infective bursitis, left elbow (2) Gram-positive bacteremia: (3) Insulin dependent type 2 diabetes mellitus: (4) Panic attacks: (5) Dyslipidemia: (6) HTN (hypertension): Hypertension type: primary hypertension Qualified Code(s): I10 - Essential (primary) hypertension (7) Elevated troponin: Debora Govea is a 58 yo M with PMH of panic attacks, T2DM on insulin, polyneuropathy, HLD, and HTN who presents as transfer from [facility] for S. Aureus bacteremia and sepsis associated with an infected bursitis. #Septic Olecranon Bursitis - Patient w/ acute onset (08/23) of erythema, warmth, and swelling at the site of the left olecranon bursa. - Leukocytosis resolved. WBC 10.16 this morning. - Bursal samples obtained at OSH 08/28 indicating S. Aureus. - Patient was on PO Bactrim starting 08/28, but was switched to Vancomycin at OSH 08/30 prior to transfer. - Started on cefazolin at 2000 mg IV Q8h inpatient based on MSSA culture results. - XR L Elbow obtained to evaluate for cx such as fx, foreign body, osteomyelitis, adjacent joint effusion, foci of air or synovial thickening. - Orthopedics consulted. Completed I&D on 09-01. #S. Aureus Bacteremia - L olecranon septic bursitis suspected source. - Blood cultures obtained at OSH 08/28 indicating S. Aureus bacteremia- MSSA. - Hemodynamically stable. - Lactate negative at OSH (1.5). - Repeat blood cultures for surveillance. - Ordered TTE to evaluate for endocarditis. Showed nonischemic cardiomyopathy. - Discontinued Vancomycin 2000 mg Q12 and started cefazolin 2000 mg Q8 given culture results. - Ordered PICC line. - Consulted ID. #Nonischemic cardiomyopathy - Cardiology consulted. Recommended to continue metoprolol 25 mg and order AYANA, but to not delay surgery for this. - Cleared for surgery given excellent functional status. - AYANA scheduled for this afternoon. #Troponin Elevation - Troponin 86 on arrival 1700, downtrending to 76 at 1900. - No chest pain or dyspnea, monitor for sx. - Likely demand in setting of infection. #Hypertension -Continue amlodipine. #Hyperlipidemia -Continue statin. #Panic attacks -Continue ativan PRN. #Type 2 Diabetes Mellitus -Continue basal insulin, home PO medications held, SSI ordered, A1C 8.2 on 08/15. FEN: DM2, Heart Healthy IVF: LR @ 125 Code status: Full Code DVT ppx: Ambulation/SCD Isolation: None Dispo:Med/Surg Admission and Anticipated Discharge Date Admission Date: August 31, 2023 Subjective Patient was seen at bedside this AM. No overnight events. States that the surgery went well. No pain or discomfort. Denies any chest pain, heart palpitations, fevers, or chills. Review of Systems Review of Systems: Constitutional: No fever, No chills, No fatigue. Respiratory: No shortness of breath, No cough, No wheezing. Cardiovascular: No lightheadedness/presyncope, No chest pain, No palpitations. Gastrointestinal: No nausea, No vomiting, No diarrhea, No constipation, No heartburn, No abdominal pain. Musculoskeletal: No back pain, No neck pain, No joint pain, No muscle pain, No decreased range of motion. Skin: No rash, No pruritus, No breakdown. Neurologic: No abnormal balance, No numbness, No tingling, No headache. Physical Exam Physical Exam: General: Alert and oriented, No acute distress HEENT: Normocephalic, no JVD, gross hearing intact, gross vision intact Cardiovascular: Normal rate, Regular rhythm, No murmur, No gallop Respiratory: Lungs are clear to auscultation, Respirations are non-labored, Breath sounds are equal Gastrointestinal: Soft, Non-tender, Non-distended, Normal bowel sounds Musculoskeletal: Normal range of motion, normal strength in bilateral upper extremities. L arm wrapped with a bandage. Neurologic: Normal sensory, Normal motor function, CN II-XII grossly intact Integumentary: Warm, Dry, [place] Psych: Mood-affect congruence. Reports no SI/HI. Speech is of normal pace and content Results & Data Vital Signs (Past 12 Hours) Vital Signs Temp Pulse Resp BP Pulse Ox O2 Del Method 09/03/23 03:07 36.6 C 84 17 132/90 96 Room Air 09/02/23 23:58 36.6 C 89 18 133/86 96 Room Air 09/02/23 20:00 36.6 C 85 18 168/83 H 96 Room Air
[2023-09-03] MEDS: DOCUSATE SODIUM/SENNA 50/8.6MG TAB PO SCH (08:26)
[2023-09-03] MEDS ORDERED: Nursing to Pharmacy Communication SCH ×2 (09:15→15:00)
--- NOTE | 2023-09-03 11:40 | Cardiology Progress Note ---
Date of Service September 03, 2023 Assessment & Plan (1) Gram-positive bacteremia: (2) Septic bursitis of elbow: (3) Nonischemic cardiomyopathy: (4) Mitral regurgitation: (5) Ventricular ectopy: (6) HTN (hypertension): (7) Diabetes mellitus: Plan Patient is doing well status post incision of olecranon bursa abscess and is anxious to return home. Unfortunately, due to having eaten breakfast and logistic issues obtaining anesthesia backup, transesophageal echocardiogram is unable to be performed today. In the absence of leukocytosis, fever, septic appearance, or other negative prognostic indicators, reasonable for discharge on oral antibiotics. Will arran for outpatient transesophageal echocardiogram sometime next week to guide duration of antibiotic therapy. Continue metoprolol succinate, would resume his outpatient dose of 50 mg daily upon discharge, both to reduce ventricular ectopy and for his likely nonischemic cardiomyopathy. Continue amlodipine for afterload reduction. May change to carvedilol and/or Entresto as outpatient to manage ischemic cardiomyopathy. May ultimately consider ablation for frequent ventricular ectopy if this continues and is felt to be the etiology for his cardiomyopathy. Will reevaluate his mitral regurgitation at the time of AYANA, this seems less severe on auscultation. As per patient's request, I will see him for cardiology follow-up (initially at the time of AYANA, then with office visit a week or so later). Admission and Anticipated Discharge Date Admission Date: August 31, 2023 Subjective Underwent drainage of left olecranon bursa abscess yesterday. Uneventful postoperative course. Denies chest pain, dyspnea, palpitations, or lightheadedness. Physical Exam Physical Exam: No distress. Afebrile. BP 152/90 mmHg. Pulse 84 bpm and regular. Respirations 16 and unlabored. Skin: no ecchymoses or generalized lesions. HEENT: unremarkable. Neck: JVP at the clavicle at 90 degrees, no carotid bruits. Lungs: clear. Cardiac: regular rhythm, normal S1-2, 2/6 apical holosystolic murmur which is nonradiating, no diastolic murmur. Abdomen: benign. Extremities: no edema, pulses intact. Left elbow bandaged (site of olecranon surgery). Neurologic: normal affect and conversation, nonfocal. Results & Data Vital Signs (Past 12 Hours) Vital Signs Temp Pulse Pulse Resp BP Pulse Ox O2 Del Method 09/03/23 08:12 98.1 F 84 16 152/92 H 94 Room Air 09/03/23 03:07 97.9 F 84 17 132/90 96 Room Air 09/02/23 23:58 97.9 F 89 18 133/86 96 Room Air Laboratory Results WBC 10.16, normal hemoglobin and platelet count. Normal electrolytes, BUN 20, creatinine 1.06. PG Care Time/CCT Total # of Minutes Spent Total Time Spent with Patient: Total time spent is greater than 50% in coordination of care (as documented) at patient's floor/unit and/or counseling patient: Coding Level of Care Code 78396 SUB INP/OBS CARE 3/50MIN Diagnoses Gram-positive bacteremia R78.81 Septic olecranon bursitis of left elbow M71.122 Laterality: left Nonischemic cardiomyopathy I42.8 Mitral regurgitation I34.0 Ventricular ectopy I49.3 Primary hypertension I10 Hypertension type: primary hypertension Diabetes mellitus E11.9 (2) Septic bursitis of elbow Laterality: left Qualified Code(s): M71.122 - Other infective bursitis, left elbow (6) HTN (hypertension) Hypertension type: primary hypertension Qualified Code(s): I10 - Essential (primary) hypertension
--- NOTE | 2023-09-03 11:54 | Orthopedic Progress Note ---
Date of Service September 03, 2023 Assessment & Plan (1) Septic bursitis of elbow: Plan Dressing and drain left in place. I did reinforce with an extra Teodoro bandage due to the length of the drain tubing Pain control with p.o. medication Ice with easy wrap Plan to pull drain tomorrow Pain control with p.o. medication Infectious disease consultation, IV medication per their discretion Will continue to monitor blood cultures Wound cultures grew Staph aureus Will most likely need a PICC/midline Follow-up at [facility] orthopedics 10 to 14 days following discharge With questions contact our clinic at [phone] Admission and Anticipated Discharge Date Admission Date: August 31, 2023 Subjective Male seen today for day 1 follow-up after undergoing irrigation and debridement for left elbow septic bursitis of his left elbow. Patient states he is doing very well today. He states his pain is well-controlled with p.o. pain medication he is receiving. He states that his drain seems to be working appropriately in the canister has a small amount of fluid in it. Patient denies chest pain, shortness of breath, fever, chills, sweats or numbness or tingling in his left upper extremity. Review of Systems Review of Systems: All systems reviewed & are unremarkable except as noted in Subjective Physical Exam Physical Exam: Left upper extremity: Dressing is clean dry and intact and left in place. There is a small amount of fluid in the drain canister. I left a drain in place. Patient had full mobility of his digits. He was able to detect light sensation to touch over the pads of all digits. He is able to reach terminal extension at his elbow and was about 10 degrees short of terminal flexion. Patient was neurovascularly intact. His peripheral pulses were 2+. Results & Data Vital Signs (Past 12 Hours) Vital Signs Temp Pulse Pulse Resp BP Pulse Ox O2 Del Method 09/03/23 08:12 36.7 C 84 16 152/92 H 94 Room Air 09/03/23 03:07 36.6 C 84 17 132/90 96 Room Air 09/02/23 23:58 36.6 C 89 18 133/86 96 Room Air Diagnostic Findings Laboratory Results WBC 10.16 K/ul (4.8-10.8) 09/03/23 05:35 RBC 5.78 M/uL (4.70-6.10) 09/03/23 05:35 Hgb 15.8 g/dl (14.0-18.0) 09/03/23 05:35 Hct 49.2 % (42.0-52.0) 09/03/23 05:35 MCV 85.1 fL (80.0-100.0) 09/03/23 05:35 MCH 27.3 pg (25.0-34.0) 09/03/23 05:35 MCHC 32.1 g/dL (32.0-36.0) 09/03/23 05:35 RDW Std Deviation 48.5 fL (36.4-46.3) H 09/03/23 05:35 RDW Coeff of Antonette 15.9 % (11.5-14.5) H 09/03/23 05:35 Plt Count 219 K/uL (130-400) 09/03/23 05:35 MPV 10.7 fL (9.4-12.4) 09/03/23 05:35 Immature Gran % (Auto) 1.9 % 09/03/23 05:35 Neut % (Auto) 75.7 % 09/03/23 05:35 Lymph % (Auto) 10.4 % 09/03/23 05:35 [place] % (Auto) 9.6 % 09/03/23 05:35 Eos % (Auto) 1.9 % 09/03/23 05:35 Baso % (Auto) 0.5 % 09/03/23 05:35 Neut # (Auto) 7.69 K/uL (1.40-6.50) H 09/03/23 05:35 Lymph # (Auto) 1.06 K/uL (1.20-3.40) L 09/03/23 05:35 [place] # (Auto) 0.98 K/uL (0.11-0.59) H 09/03/23 05:35 Eos # (Auto) 0.19 K/uL (0.00-0.50) 09/03/23 05:35 Baso # (Auto) 0.05 K/uL (0.00-0.20) 09/03/23 05:35 Immature Gran # (Auto) 0.19 K/uL (0.01-0.20) 09/03/23 05:35 Rouleaux 1+ 08/31/23 23:53 Sodium 138 mmol/L (136-145) 09/03/23 05:35 Potassium 3.8 mmol/L (3.5-5.1) 09/03/23 05:35 Chloride 104 mmol/L (98-107) 09/03/23 05:35 Carbon Dioxide 30 mmol/L (21-32) 09/03/23 05:35 Anion Gap 4 (3-11) 09/03/23 05:35 BUN 20 mg/dl (6-23) 09/03/23 05:35 Creatinine 1.06 mg/dl (0.6-1.4) 09/03/23 05:35 Est Cr Clr Drug Dosing 94.4 ml/min 09/03/23 05:35 Est GFR ( Amer) 88.6 ml/min 09/03/23 05:35 Est GFR (Non-Af Amer) 76.4 ml/min 09/03/23 05:35 BUN/Creatinine Ratio 18.9 (10-20) 09/03/23 05:35 Glucose 65 mg/dl (70-99(Fasting)) L 09/03/23 05:35 POC Glucose 192 mg/dl (70-99) H 09/03/23 11:42 Calcium 8.4 mg/dl (8.6-10.3) L 09/03/23 05:35 Magnesium 1.8 mg/dl (1.7-2.4) 09/01/23 07:15 Total Bilirubin 0.7 mg/dl (0.2-1.0) 08/31/23 23:53 AST 14 U/L (13-39) 08/31/23 23:53 ALT 25 U/L (7-52) 08/31/23 23:53 Alkaline Phosphatase 81 U/L (34-104) 08/31/23 23:53 Troponin I High Sens 56.4 pg/ml (0-20) H* 08/31/23 23:53 C-Reactive Protein < 0.50 mg/dl (0-0.5) 09/01/23 07:15 Total Protein 6.1 gm/dl (6.0-8.3) 08/31/23 23:53 Albumin 3.4 gm/dl (3.4-5.0) 08/31/23 23:53 Globulin 2.7 gm/dl (2.5-4.0) 08/31/23 23:53 Albumin/Globulin Ratio 1.3 (0.9-2) 08/31/23 23:53 Fluid Comment 09/01/23 11:30 Synovial Source Elbow 09/01/23 11:30 Synovial Color Other 09/01/23 11:30 Synovial Appearance Turbid 09/01/23 11:30 Synovial WBC (Auto) 1539931 /ul (0-200) H 09/01/23 11:30 Synovial RBC (Auto) 626276 /uL 09/01/23 11:30 Synovial Polynuclear % 82.3 % 09/01/23 11:30 Synovial Mononuclear % 17.7 % 09/01/23 11:30 Synovial Crystals 09/01/23 11:30 Impressions Elbow X-Ray 09/02/23 00:00 FL elbow LT 2V CLINICAL HISTORY: LEFT ELBOW TECHNIQUE: 2 views were obtained with the C-arm in the OR with the above procedure. Total fluoroscopy time was 2.9 seconds. Radiation dose was 0.14 mGy. Comparison: Comparison is made to left shoulder radiographs 09/01/2023 FINDINGS/IMPRESSION: Intraoperative images were obtained of incision and drainage of the left elbow. Please correlate with intraoperative fluoroscopy and operative report. ACT 112: Negative or not required by law. Electronically signed by: Carlos Ramírez M.D. 09/02/2023 1:39 PM (1) Septic bursitis of elbow Laterality: left Qualified Code(s): M71.122 - Other infective bursitis, left elbow
[2023-09-03] MEDS: INSULIN ASPART PER UNIT CHARGE SC SCH ×2 (12:05→17:03)
--- NOTE | 2023-09-03 13:49 | Pharmacy Report ---
Pharmacy Glycemic Short Note 2 - Date of Service September 03, 2023 - Glycemic Short BSG Results (Last 24 hours): 09/02/23 09/02/23 09/02/23 16:38 16:39 17:05 Glucose POC Glucose 64 L* 67 L* 98 09/02/23 09/03/23 09/03/23 20:26 05:35 07:40 Glucose 65 L POC Glucose 236 H 79 09/03/23 11:42 Glucose POC Glucose 192 H OUTPATIENT ANTIDIABETIC REGIMEN: * Spoke with patient r/e insulin (prefers to be called Venancio) * Toujeo 80 units daily, between 10-11am. Reports adherence daily. * Humalog prn BSG and/or CHO - varies daily. Averages about 15 units/day. * Metformin * Semaglutide * Empagliflozin * HbA1c 8.2% on 08/16/23 ASSESSMENT: 09/02: * BSGs erratic the last 24h: 46-013-65-192mg/dL. Received 0 units of basal and 2 units of bolus insulin yesterday. * Continues on antibiotics, and remains NPO. * No change to insulin regimen for now- continue to hold basal and CR. 09/01 * Patient has received 0 units of insulin over last 24 hours, NPO since midnight. Blood sugars at goal or below. * Continue to hold basal and CR at this time. Plan undergo drainage of a septic olecranon bursa later today. 08/31 * 58 yo M with MSSA bacteremia and T2DM admitted 08/30 PM. Patient reports eating a sandwich, fruit, and yogurt prior to his HS BSG check last night and therefore was not surprised it was elevated. Small amount of Novolog correctional administered. BSG trended down significantly overnight to 52 mg/dL this AM * Patient reports AM fasting BSG's are usually on the lower side, sometimes in the 80's mg/dL but then trend up over the course of the day * Home regimen is significantly basal heavy (as compared to bolus) * Suspect etiology of low BSG this AM was not to due to small correctional dose of Novolog administered at HS, but rather Toujeo dose of 80 units whic h patient reported he took yesterday * Will attempt to more evenly balance basal/bolus insulin as an inpatient by reducing long-acting insulin and increasing prandial insulin. Toujeo is a longer-acting form of basal insulin, so this transition may need to occur over a day or two * No basal today - lunch BSG still trending down, significant overnight decrease last night, long-active high dose Toujeo on board and patient is scheduled to be NPO at midnight for I&D in OR tomorrow * Will keep very loose Novolog for now 2nd persistent Toujeo effects * If/when BSG's trend up and risk for hypoglycemia has dissipated, will need to consider resuming Lantus in-house and tightening Novolog parameters PLAN FOR INPATIENT GLYCEMIC CONTROL: * Hold outpatient diabetes medications * Basal insulin * Hold Lantus * Bolus insulin * NovoLog per scale ACHS or Q6hrs while NPO * Goal Range: Low 120 mg/dL - High 160 mg/dL * Correction Factor: 40 mg/dL/unit * Nutritional / Prandial insulin per carb ratio of 1 unit per -- grams CHO consumed
--- NOTE | 2023-09-03 14:00 | Infectious Disease Consult ---
Date of Consultation September 03, 2023 Assessment & Plan (1) MSSA bacteremia: (2) Olecranon bursitis: (3) Diabetes mellitus: Plan 58yo M with h/o T2DM, polyneuropathy, panic attacks, HTN, HLD who presented on 08/30 from OSH with S aureus bacteremia and associated septic bursitis. He had i njured his elbow at work and had worsening swelling. He was seen at OSH on 08/28 and the left elbow swelling was aspirated and sent for cx along with BCX, and dcd on PO Bactrim DS bid and prednisone 40mg daily. He was later called and told to come to the hospital due to S aureus on blood and wound cx. He initially presented to [facility], received vancomycin x 1 dose, and was transferred to [facility] for ongoing care. Here he has been afebrile. WBC 13.59>17.15, Cr 1.13, LFT wnl. Trop elevated. Elbow XR with soft tissue swelling about the elbow with radiodense foreign bodies noted, no acute fracture. S/p bedside aspiration of left elbow bursa on 08/31 by ortho with aspiration of 20cc of thick white purulent fluid (fluid with 2,294,600 WBC). S/p OR 09/01 and underwent L olecranon bursectomy with I+D, drain placed. TTE with EF 25-30%, moderate to severe MR. Seen by cardiology, planned for AYANA. ID consulted 09/02. MSSA bacteremia noted at outside facility on 08/28, no growth here on 08/30 cultu res. Given elevated troponin and moderate to severe MR on TTE, I agree with cardiology regarding pursuing a AYANA. Per notes, it seems they would like to do this outpatient. He did have a bursectomy which does allow for a shorter duration of abx for a septic bursitis, however given concomitant bacteremia with MSSA, longer duration of abx is needed. Since he was bacteremic outpatient and possible duration of bacteremia could have been longer, I would treat him with 4 weeks of IV antibiotics. This would need to be extended to 6 weeks if there is evidence of endocarditis on AYANA. # MSSA bacteremia # Left elbow septic bursitis 2/2 MSSA, s/p bursectomy and I+D on 09/01 # moderate-severe MR # H/o T2DM - f/u sensitivities from 09/01 OR cx - f/u BCx from 09/02 - continue on cefazolin 2g IV q8h (can do 6g IV continuous infusion daily outpatient if easier) - will plan for at least 4 weeks of IV cefazolin for MSSA bacteremia starting from 09/01 (unless BCx from 09/02 are positive)- tentative eot 09/28 - if AYANA show vegetations, then will need to treat for 6 weeks for an endocarditis - monitor weekly CBC w diff and CMP while on IV abx - he should follow up with PCP or local ID provider ID will continue to follow. If questions or concerns, contact Infectious Disease Call Center . Amanda Darnell MD [facility], Division of Infectious Diseases [facility]: [phone] Consultation Information Consultation was provided via telemedicine using two-way real-time interactive telecommunication between the patient and the telemedicine provider. For the duration of the visit, the provider was performing the assessment from a different facility than the patient. This includesuse of bluetooth stethoscope forauscultationperformed by the telepresenter that the telemedicine provider can hear if described in the physical exam. Custom Cl[employer]ier contact information: Please call [facility] Call Center . (Phone Number For Physician Use Only) After establishing a telemedicine visit, patient was: Patient was verified with two unique identifiers, Patient/authorized rep acknowledged consent and understanding and Gave permission to continue telehealth session Time Spent with Patient: Initial => 75 min History of Present Illness Reason for Consultation: MSSA bacteremia Attending Physician: Kecia French MD History of Present Illness 58yo M with h/o T2DM, polyneuropathy, panic attacks, HTN, HLD who presented on 08/30 from OSH with S aureus bacteremia and associated septic bursitis. 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 He had cleaned the area and but on aloe, but it began to swell shortly after. He was seen at OSH on 08/28 and the left elbow swelling was aspirated and sent for cx. He also had BCx obtained at that time. He was discharged on PO Bactrim DS bid and prednisone 40mg daily. He was later called and told to come to the hospital due to S aureus on blood and wound cx. He initially presented to [facility], received vancomycin x 1 dose, and was transferred to [facility] for ongoing care. Since the aspiration, the swelling has returned and increased in size. He denied any pain at the site and no limitations in ROM. No fevers or chills. Has had increasing fatigue. Here he has been afebrile. WBC 13.59>17.15, Cr 1.13, LFT wnl. Trop elevated. Elbow XR with soft tissue swelling about the elbow with radiodense foreign bodies noted, no acute fracture. S/p bedside aspiration of left elbow bursa on 08/31 by ortho with aspiration of 20cc of thick white purulent fluid (fluid with 2,294,600 WBC). S/p OR 09/01 and underwent L olecranon bursectomy with I+D. TTE with EF 25-30%, moderate to severe MR. Seen by cardiology, planned for AYANA. ID consulted 09/02. On evaluation, patient reports feeling better. He says he had injured his left elbow at work and since then has had swelling. No pain in shoulder or rashes. No abdominal pain, v/d. Allergies Allergy/AdvReac Type Severity Reaction Status Date / Time No Known Allergies Allergy Unknown Verified 09/01/23 17:58 Home Medications Medication Instructions Recorded Confirmed Type coenzyme Q10 100 mg capsule 100 mg PO DAILY 05/12/18 09/01/23 History (CoQ-10) multivitamin 1 tab PO DAILY 05/12/18 09/01/23 History metformin 500 mg tablet,extended 1,000 mg (2 x 500 mg) PO QPM 30 05/26/22 09/01/23 Rx release 24hr (osmotic) days #60 tabs meteen meter 06/22/22 08/23/23 History insulin syringe-needle U-100 1 mL #20 ea 10/29/22 08/23/23 Rx 29 gauge x 1/2" (BD Insulin Syringe) testosterone cypionate 200 mg/mL 200 mg IM Q14D #2 mL 10/29/22 09/01/23 Rx intramuscular oil (Depo-Testosterone) insulin syringe-needle U-100 1 mL #2 ea 10/30/22 08/23/23 Rx 29 gauge x 1/2" (Advocate Syringes) magnesium 200 mg tablet 400 mg PO DAILY 12/04/22 09/01/23 History atorvastatin 80 mg tablet 80 mg PO DAILY #30 tabs 01/25/23 09/01/23 Rx cholecalciferol (vitamin D3) 1,250 50,000 unit PO Q7D #12 caps 01/25/23 09/01/23 Rx mcg (50,000 unit) capsule Dexcom G7 Studio Assistant (blood-glucose #1 ea 02/19/23 08/23/23 Rx meter,continuous) Dexcom G7 Sensor (blood-glucose #3 ea 02/22/23 08/23/23 Rx sensor) syringe (disposable) 1 mL (Easy #100 ea 03/18/23 08/23/23 Rx [place] Luer Slip TB Syringe) semaglutide 2 mg/dose (8 mg/3 mL) 2 mg (0.75 mL) subcut WK 30 days 04/08/23 09/01/23 Rx subcutaneous pen injector #3 mL amlodipine 5 mg tablet 5 mg PO DAILY #30 tabs 05/14/23 09/01/23 Rx metoprolol succinate 25 mg 50 mg (2 x 25 mg) PO DAILY 90 days 06/11/23 09/01/23 Rx tablet,extended release 24 hr #180 tabs tamsulosin 0.4 mg capsule 0.4 mg PO DAILY #90 caps 06/18/23 09/01/23 Rx cyclobenzaprine 10 mg tablet 10 mg PO DAILY PRN muscle spasm 07/09/23 09/01/23 Rx #30 tabs tramadol 50 mg tablet 50 mg PO DAILY PRN pain #30 tabs 08/07/23 09/01/23 Rx lorazepam 0.5 mg tablet 0.5 mg PO DAILY PRN anxiety #30 08/22/23 09/01/23 Rx tabs insulin lispro 100 unit/mL See Rx Instructions subcut 08/27/23 09/01/23 Rx subcutaneous pen (Humalog KwikPen .COMPLEX #15 mL (U-100) Insulin) albuterol sulfate 90 mcg/actuation 2 puff inhalation Q4H PRN Wheezing 09/01/23 09/01/23 History aerosol inhaler (Ventolin HFA) insulin glargine U-300 conc 300 80 unit subcut QAM 09/01/23 09/01/23 History unit/mL (3 mL) subcutaneous pen (Toujeo Max U-300 SoloStar) sulfamethoxazole 800 1 tab PO BID 09/01/23 09/01/23 History mg-trimethoprim 160 mg tablet tadalafil 5 mg tablet 5 mg PO DAILY PRN Unknown 09/01/23 09/01/23 History cyanocobalamin (vitamin B-12) 1,000 mcg IM Q30D #1 mL 09/02/23 Rx 1,000 mcg/mL injection solution Patient History Medical History Cervical vertebral fusion Polycythemia Hypertension Diabetes mellitus Surgical History Hx of cervical spine surgery Plates C3, C4, C5 2003 History of open reduction and internal fixation (ORIF) procedure Left Forearm Family History Aunt Breast cancer Father Pulmonary embolism Uncle Diabetes Denies family history of Ovarian cancer Prostate cancer Myocardial infarction Colorectal cancer Social History Smoking Status: Never smoker Second Hand Exposure: No; Do You Dip or Chew Tobacco: No; Hx Alcohol Use: No Hx Substance Use: No Preferred Language: [place] Communication Ability: Effective Visual Impairment: No Limitations Hearing Ability: Normal Shaft Repairer Required: No Beliefs That Will Affect Care: None marital status: Current Living Situation: Alone current occupational status: employed current occupation: metal fabrication How many Children do You have: 2 Feels Safe at Home: Yes Childhood Exposure to Second-Hand Smoke: Yes Diet: regular caffeine: Yes during the past year weight has: remained stable Dental Care, Regularly: No Physical Activity Frequency: 1-2 Times per Week Seatbelt Use: sometimes Sunscreen Use: Yes Assistive Devices: None Review of System 10-point review of systems reviewed and are negative except for as above. Physical Exam Physical Exam: General: Awake, alert, no acute distress HEENT: NC/AT, EOMI, mmm Neck: supple, no LAD Lungs: clear Heart: regular Abdomen: soft, NT/ND Back: no spinal tenderness Ext: no LE edema, left arm with postsurgical dressing Skin: no rash Neuro: moving all extremities Results & Data Vital Signs (Past 12 Hours) Vital Signs Temp Pulse Pulse Resp BP Pulse Ox O2 Del Method 09/03/23 12:23 36.8 C 99 H 18 142/82 H 98 Room Air 09/03/23 08:12 36.7 C 84 16 152/92 H 94 Room Air 09/03/23 03:07 36.6 C 84 17 132/90 96 Room Air Laboratory Results Labs reviewed. Diagnostic Findings Imaging reviewed.
--- NOTE | 2023-09-03 17:43 | Discharge Summary ---
Date of Service September 03, 2023 Admission HPI Per Admitting Provider Jeferson is a 58M with PMH of panic attacks, T2DM on insulin, polyneuropathy, HLD, and HTN who presents as transfer from [facility] for S. Aureus bacteremia and sepsis associated with an infected bursitis. Patient notes that alittle over a week ago, he was welding at work and some slag hit his left elbow resulting in a burn to the area. He notes that he cleaned it well and put aloe on the area, but that shortly thereafter it started to swell. He presented for evaluation on Wednesday and the area of edema over the left elbow joint was aspirated and a sample was sent for culture. In addition, blood cultur es were obtained. Patient was discharged on PO Bactrim DS BID and Prednisone 40 mg PO daily. He notes that he was in [place] this morning and was called and notified that his wound and blood cultures were growing S. Aureus. He subsequently presented to [facility] and was transferred to [facility] for ongoing care. Patient notes that the swelling on his elbow had diminished following aspiration, but over the last few days it has only returned and increased in size. He denies pain at the site and has no limitations to ROM of the left arm/elbow. He denies fevers or chills, but does note that he has been increasingly fatigued and weak, which has progressed over the week, to the point where climbing a few steps has become challenging. Denies headache or lightheadedness. No chest pain or dyspnea. No bowel/bladder changes. He continues to eat and drink without limitation. Patient was transferred from [facility] ED where he was started on Vancomycin and received first dose via IV at 1645 for Septic Bursitis. Transfer was initiated to [facility] as [facility] did not have access to Orthopaedics consultation this week. Patient's PCP is Dr. Maxwell from [facility]. OSH records reviewed at length. Admission Exam Per Admitting Provider Gen: NAD, alert, interactive HEENT: Supple, no LAD, no thyromegaly, no JVD Resp:Non-labored, no wheezing/rhonchi/rales, CTAB CV:RRR, normal S1/S2, no M/R/G Abd: Soft, non-distended, no TTP, normoactive bowels, no masses Extr: 2+ distal pulses in UE and LE, no LE edema, L olecranon bursa with significant erythema and edema, fluctuant fluid collection superficial to joint, mild overlying warmth, no expressible purulence or fluid. No ascending or descending erythema. Skin: No rashes lesions or erythema Principal Diagnosis Septic Olecranon bursitis, MSSA bacteremia Discharge Exam General: Alert and oriented, No acute distress HEENT: Normocephalic, no JVD, gross hearing intact, gross vision intact Cardiovascular: Normal rate, Regular rhythm, No murmur, No gallop Respiratory: Lungs are clear to auscultation, Respirations are non-labored, Breath sounds are equal Gastrointestinal: Soft, Non-tender, Non-distended, Normal bowel sounds Musculoskeletal: Normal range of motion, normal strength in bilateral upper extremities. L arm wrapped with a bandage. Neurologic: Normal sensory, Normal motor function, CN II-XII grossly intact Integumentary: Warm, Dry, [place] Psych: Mood-affect congruence. Reports no SI/HI. Speech is of normal pace and content Discharge Data Allergies Allergy/AdvReac Type Severity Reaction Status Date / Time No Known Allergies Allergy Unknown Verified 09/01/23 17:58 Consultations 08/31/23 22:30 Consult Orthopedic Surgery Routine 09/01/23 18:19 Consult Cardiology Routine 09/02/23 08:00 Consult Cardiology Routine 09/03/23 09:52 Consult Infectious Diseases Routine Procedures Performed Operation Date: 09/02/23 12:00 Actual Procedures p Left Olecranon Bursectomy with Incision and Debridement(Left) - Wayne Santana MD Ordered Studies 09/02/23 FL elbow LT 2V Routine Hospital Course (1) Septic bursitis of elbow: (2) Gram-positive bacteremia: (3) Insulin dependent type 2 diabetes mellitus: (4) Panic attacks: (5) Dyslipidemia: (6) HTN (hypertension): (7) Elevated troponin: Debora Govea is a 58 yo M with PMH of panic attacks, T2DM on insulin, polyneuropathy, HLD, and HTN who presents as transfer from [facility] for S. Aureus bacteremia and sepsis associated with an infected bursitis. #Septic Olecranon Bursitis Aspirate + staph spp XR L Elbow obtained to evaluate for cx such as fx, foreign body, osteomyelitis, adjacent joint effusion, foci of air or synovial thickening s/p I&D, washout 09/02/2023 #S. Aureus Bacteremia Blood cultures obtained at OSH 08/28 indicating S. Aureus bacteremia- martinez sensitive Ancef 2g q8h while hospitalized TTE to evaluate for endocarditis: valves negative for vegetations Patient requested premature discharge Will follow at [facility] for 2g Rocephin as this is the only once daily agent that can be administered at [facility] against advice of infectious disease Rocephin will cover for MSSA bacteremia if infectious endocarditis is not present AYANA unable to be obtained prior to discharge - Will be arranged for 09/09/23 If evidence of vegetation on AYANA patient must return to ER for readmit and receive Ancef TID as this is the appropriate treatment for infectious endocarditis Repeat blood cultures for surveillance - pending at discharge; initial cultures at our institution negative at 48hours #Nonischemic cardiomyopathy EF 25-30% on TTE Continue metoprolol 25mg AYANA to rule out infective endocarditis as outpatient due to rushed discharge -Needs outpatient work up with primary caramel cutter helper for ischemic work up. #Troponin Elevation Peak on arrival at 86 Denies chest pain, dyspnea Likely demand related #Type 2 Diabetes Mellitus Basal bolus, SSI while inpatient Resume home medications on discharge Total Time Total Time Spent Total Time Spent (In Minutes): see attending documentation Discharge Plan Discharge Items Patient Disposition: Home - Self-Care Reason For Visit: SEPTIC BURSITIS Discharge Diagnosis: septic olecranon bursitis Activity: Per Instructions section Weightbearing: Left non-weightbearing Non-emergency contact: Surgeon Call non-emergency contact if: you have any medication questions, your symptoms worsen, your pain is not controlled, your temperature is above 101, your wound has increased redness and your wound has increased drainage Follow-up/Referrals: Tunde Abarca MD [Physician] - Mery Maxwell MD [Primary Care Provider] - Dora Bucio PA-C [Physician Live Games Dealer] - 09/06/23 9:00 am Diet: Carb Consistent or DM2 and Heart Healthy Addtl Attending Provider Instructions: You were admitted to the hospital for an infection in the bursa of your left elbow and a staph infection in your blood. You were treated with surgery to drain and remove the infection in your elbow and antibiotics for the blood stream infection. While you were here a limited ultrasound of your heart was done that showed that your heart function is severely impaired. A known complication of the blood infection that you have is that the bacteria can get stuck to your heart valves and form what are called vegetations. We were unable to complete a full trans-esophageal echo (AYANA) of your heart before you needed to leave the hospital and therefore cannot completely rule out this complication. Further, to continue your antibiotics as an outpatient on the short timeline leading to your discharge we will be treating you with an antibiotic called ceftriaxone. To receive this, you will need to come to the medical treatment unit ([facility]) daily for antibiotic infusions. This antibiotic is not the ideal choice for the treatment of your blood stream infection if you have an infection in your heart. Dr. Abarca (cardiology) will set up an appointment for you to have a full AYANA on 09/09/23. If this study shows that you have bacterial growth on one of the valves of your heart you must return to our ER promptly so that your antibiotics can be changed. A discharge summary will be sent to your primary care physician to ensure continuity of care. Please bring this discharge summary with you to your next office appointment so that your provider can review it at that time. Follow-up appointments: Make a follow-up appointment with your PCP within the next week. It is very important that you follow up with them shortly after discharge from the hospital. Someone will reach out to schedule follow up with cardiology for the AYANA; someone will reach out to schedule follow up for orthopedic surgery Keep all your follow-up appointments as already scheduled. If you cannot make an appointment, notify your provider. Medications: Your medication list has been reviewed and reconciled upon discharge to ensure accuracy and continuity of care. An updated list of all your medications is included with your hospital discharge paperwork. Please review this list closely, and make note of any changes. Take your medications as instructed; do not skip a dose of your medicines. Make sure all of your doctors know every medicine you are taking (including wgnw-acd-lfiwbgy medicines, vitamins, and supplements). Call your primary care provider before taking any new medicines (including wxua-bzt-hsxyvre medicines, vitamins, and supplements), because some of these may interact with your current medications, or may make your symptoms worse. Tell your primary care provider if you cannot afford your medications. CONTACT YOUR PRIMARY CARE PROVIDER if you experience any of the following: Fever Increased pain in your wound site Difficulty following your treatment plan, or difficulty taking medications CALL 911 OR GO TO THE EMERGENCY DEPARTMENT if you experience any of the following: Sudden, severe abdominal pain or nausea/vomiting Severe chest pain, or chest pain that radiates (moves) to your jaw or arm Sudden, severe shortness of breath or difficulty breathing Thank you for allowing us to participate in your care. Addtl Fluoroscope Operator Provider Instructions: Orthopedic Instructions: - Keep dressings on left elbow at all times. May redress as needed. -Ice and elevate left upper extremity as needed for pain and swelling. -Allowed for gentle range of motion of the left elbow as tolerated and not stressing allows. May do full range of motion of the wrist fingers and shoulder. -Do not weight-bear on your left elbow. Keep pressure off the tip of your left elbow when at rest. -Sling left arm as needed for comfort. -Take antibiotics as instructed by primary service. -Tylenol and/or ibuprofen and pain medication as prescribed. -Call [phone] with any increased pain, swelling, fevers, chills, drainage, questions or concerns. -Follow-up with Dr. Santana at [facility] orthopedics as scheduled. If you do not have a scheduled appointment please call [phone] to schedule or confirm appointment. Pending Studies at Discharge: Yes Studies:: Repeat blood cultures Stand-Alone Forms: [facility] Medications and DC Order Prescriptions: Continued metformin 500 mg tablet extended release 24hr 1,000 mg PO QPM 30 Days Qty: 60 5RF Rx Instructions: Not OSM. (DME) insulin syringe-needle U-100 [BD Insulin Syringe] 1 mL 29 gauge x 1/2" syringe See Rx Instructions .Route Qty: 20 3RF Rx Instructions: use one with each testosterone injection testosterone cypionate [Depo-Testosterone] 200 mg/mL oil 200 mg IM Q14D Qty: 2 4RF Rx Instructions: 200 mg every 2 weeks (DME) insulin syringe-needle U-100 [Advocate Syringes] 1 mL 29 gauge x 1/2" syringe See Rx Instructions .Route Qty: 2 4RF Rx Instructions: to use with testosterone injection cholecalciferol (vitamin D3) 1,250 mcg (50,000 unit) capsule 50,000 unit PO Q7D Qty: 12 3RF Rx Instructions: Wed (DME) Dexcom G7 Sensor Device See Rx Instructions .Route Qty: 3 11RF Rx Instructions: change sensor every 10 days (DME) Easy Cashmere Luer Slip TB Syring 1 mL syringe See Rx Instructions .Route Qty: 100 1RF Rx Instructions: 27G x 1/2" - use with testosterone injections semaglutide 2 mg/dose (8 mg/3 mL) pen injector 2 mg subcut WK 30 Days Qty: 3 5RF Rx Instructions: Wednesday amlodipine 5 mg tablet 5 mg PO DAILY Qty: 30 3RF Rx Instructions: Take one tablet by mouth daily. tamsulosin 0.4 mg capsule 0.4 mg PO DAILY Qty: 90 1RF cyclobenzaprine 10 mg tablet 10 mg PO DAILY PRN (Reason: muscle spasm) Qty: 30 1RF tramadol 50 mg tablet 50 mg PO DAILY PRN (Reason: pain) Qty: 30 0RF lorazepam 0.5 mg tablet 0.5 mg PO DAILY PRN (Reason: anxiety) Qty: 30 0RF insulin lispro [Humalog KwikPen Insulin] 100 unit/mL insulin pen See Rx Instructions subcut .COMPLEX Qty: 15 2RF Rx Instructions: subcutaneously inject as directed prior to meals; TDD 50 units cyanocobalamin (vitamin B-12) 1,000 mcg/mL solution 1,000 mcg IM Q30D Qty: 1 6RF atorvastatin 80 mg tablet 80 mg PO DAILY Qty: 30 5RF Rx Instructions: Take one tablet by mouth once daily. (DME) Dexcom G7 Special Effects Person Misc See Rx Instructions .Route Qty: 1 0RF Rx Instructions: for use with dexcom G7 sensor (DME) meteen meter See Rx Instructions .Route .MEDSUPPLY Rx Instructions: testing 2 times daily metoprolol succinate 25 mg tablet extended release 24 hr 50 mg PO DAILY 90 Days Qty: 180 3RF magnesium 200 mg tablet 400 mg PO DAILY multivitamin Tablet 1 tab PO DAILY coenzyme Q10 [CoQ-10] 100 mg Capsule 100 mg PO DAILY albuterol sulfate [Ventolin HFA] 90 mcg/actuation HFA aerosol inhaler 2 puff INHALATION Q4H PRN (Reason: Wheezing) tadalafil 5 mg tablet 5 mg PO DAILY PRN (Reason: Unknown) insulin glargine U-300 conc [Toujeo Max U-300 SoloStar] 300 unit/mL (3 mL) insulin pen 80 unit subcut QAM Discontinued sulfamethoxazole-trimethoprim 800-160 mg tablet 1 tab PO BID Rx Instructions: Start Date 08/29/23 x7 day supply. Pt has only taken 3 doses as of 09/01/23 Discharge Orders: Discharge Order (Routine); Ordered 09/03/23 Ordered By: Fernando Looney/Other Patient Handouts: Caring for Your PICC Dc Admission Data Admit Date/Time: 08/31/23 21:24 Attending Provider: Kecia French Admit Provider: Agusto Hernandez Primary Care Provider: Mery Maxwell Other Providers: Allen Benton; Tunde Abarca; Wayne Santana; Barbara Rebolledo; Adali Taveras; Amanda Darnell; Dwayne Freedman; Ilana Silva; Meaghan Mcallister Other Interventions: Discharge Summary Assessment (RN) Last Done: 09/03/23 16:37 Supervising Physician Co-Signing Physician Notes Attending Physician Supervision Note: I independently interviewed and examined the patient and verified the denis history and physical, reviewed labs and image studies and agree with findings and care plan noted above. Resident Activity Tracking Resident Involvement: Resident Care Provided Care Provided: Adult Hospital Medicine
== END 2023-09-03 17:46 | disposition home or self-care (01) | DRG 854 ==
LOC: SUATTDRO 21:24 → 2W 21:24 → 3W 09-02 15:08